=== PATIENT | female | born 1950 | race Caucasian/White ===

== ENCOUNTER → 2017-11-30 12:16 | Outpatient (CLI) | payer MEDICARE, BC, SELFPAY ==
[2017-11-30 12:58] LABS: Appearance Urine UA CLEAR; Bilirubin Urine UA NEGATIVE (NEGATIVE); Color Urine UA YELLOW; Glucose Urine UA NEGATIVE (Normal); Ketones Urine UA NEGATIVE (NEGATIVE); Leukocyte Esterase Urine UA 1+ (NEGATIVE); Nitrite Urine UA Negative (Negative); Occult Blood Urine UA TRACE-LYSED (Negative); Protein Urine UA NEGATIVE (Negative); Specific Gravity Urine UA <=1.005 (1.000-1.035); Urobilinogen Urine UA 0.2 E.U./dL (0.2)
[2017-11-30 13:09] LABS: RBC Urine None Seen (0-5/HPF); Squamous Epithelial Cell Urine 1-5 /HPF; WBC Urine 30-100/HPF (0-5/HPF)
[2017-11-30 13:10] LABS: Bacteria Urine Occasional (0-1); Culture Indicated Urine Specimen Cultured
== END ==
PROVIDERS: PCP Obstetrics & Gynecology; Visit Provider Obstetrics & Gynecology
DX: Z87.440 Personal history of urinary (tract) infections (principal); R39.9 Unspecified symptoms and signs involving the genitourinary system
CPT/HCPCS: 81001; 87077; 87086; 87186

== ENCOUNTER 2018-01-01 08:03 | Day surgery (SDC) | payer MEDICARE, BC, SELFPAY ==
[2017-12-18 08:24] VITALS: BMI 30.2
[2018-01-01] VITALS (13 sets, daily range): BP systolic 121–154; BP diastolic 60–79; PULSE 64–82; RESP 11–18; TEMP 36–36.8; O2SAT 95–100; BMI 29.6
[2018-01-01] MEDS: LACTATED RINGERS 1,000 ML 100 ML IV ×4 (09:59→23:32)
--- NOTE | 2018-01-01 10:02 | PM.PREOP ---
Pre-operative Note Interval Note Pre-op Check: Yes History & Physical Reviewed by Physician Changes: No
[2018-01-01] MEDS: CEFAZOLIN 2 GM/100 ML FROZ.PIGGY IV (10:16)
--- NOTE | 2018-01-01 10:51 | SUR.OPER ---
Lithotomy on padded OR bed, head on pillow, arms secured on padded arm boards at <90 degrees abduction. Legs secured in padded yellow fins stirrups.
[2018-01-01] MEDS: BUPIVACAINE 0.25% W/ EPI VIAL 50 ML INJ (11:03)
[2018-01-01] MEDS: HYDROMORPHONE 2 MG INJ 0.5 MG IV ×2 (12:10→12:22)
--- NOTE | 2018-01-01 12:31 | SUR.PHASEI ---
pt gradually awake, medicated for pain with dilaudid./ report to shey atkinson taken to room 206.
--- NOTE | 2018-01-01 16:44 | PC.NURSE ---
Roseline shift note: Patient awake, and alert. No c/o pain or discomfort. FC draining to gravity secured, with yellow clear urine. IVF infusing. Able to visualize vaginal packing, no active bleeding or abnormal discharge noted. Menstrual pad in place with dried quarter size dark blood noted. Call light within reach.
[2018-01-01] MEDS: DOCUSATE 250 MG CAPSULE PO (20:33)
[2018-01-01] MEDS: OXYCODONE/ACETAMINOPHEN 5/325 TABLET 2 TAB PO (23:33)
[2018-01-02 00:03] VITALS: BP 137/71; PULSE 66; RESP 18; TEMP 37.1; O2SAT 99
--- NOTE | 2018-01-02 00:36 | PC.NURSE ---
shift note met with pt at start of shift. AOx3. 99% on RA. No drainage on pad. Rivera hanging, discussed discontining irvera in am. Pain 07/04, provided PRN percocet. Call light in reach.
[2018-01-02 04:42] VITALS: BP 129/57; PULSE 62; RESP 16; TEMP 36.5; O2SAT 98
[2018-01-02 07:04] LABS: Add Manual Diff / Slide Review NO; Basophils Percent Auto 0.4 % (0-2); Eosinophils Percent Auto 0.4 % (2-4); Hematocrit 34.6 % (36-46); Hemoglobin 11.6 g/dL (12.0-16.0); Lymphocytes Percent Auto 19.6 % (25-40); Mean Corpuscular HGB Conc 33.6 % (30-36); Mean Corpuscular Hemoglobin 31.6 PG (26-34); Mean Corpuscular Volume 94.2 fL (80-100); Monocytes Percent Auto 8.7 % (3-14); Neutrophils Absolute Auto 5500 /uL (3000-5900); Neutrophils Percent Auto 70.9 % (50-75); Platelet Count 227 X10^3/uL (150-400); Red Blood Cell Count 3.67 X10^6/uL (4.0-5.2); Red Cell Distribution Width 13.9 % (11.6-14.8); White Blood Cell Count 7.7 X10^3/uL (4.5-11.0)
[2018-01-02 08:00] VITALS: BP 155/78; PULSE 73; RESP 16; TEMP 36.8; O2SAT 98
[2018-01-02] MEDS: DOCUSATE 250 MG CAPSULE PO (09:41)
--- NOTE | 2018-01-02 10:12 | PC.NURSE ---
A&Ox3. F/C d/c'd ~0600, voided 400cc @ 1000. notified of PVR 33cc. No drainage noted after d/c of vaginal packing this a.m by . Awaiting any new orders.
[2018-01-02 12:00] VITALS: BP 150/78; PULSE 64; RESP 16; TEMP 36.9; O2SAT 100
--- NOTE | 2018-01-02 12:17 | PC.NURSE ---
Discharge teaching completed, all d/c questions answered. Pt aware of scheduled follow up, s/sx of worsening. and d/c restrictions written by . Pt discharged with spouse and with all belongings.
--- NOTE | 2018-02-23 12:01 | PM.GYNOP.1 ---
Operative Date/Time/Diagnoses Date of procedure: 01/01/18 Time of procedure: 10:30 Pre-op diagnosis: Symptomatic cystocele and rectocele Post-op diagnosis: same Procedure: Procedures Operation Date: 01/01/18 09:45 Actual Procedures Side Surgeon p Colporrhaphy Anterior/Posterior Colporrhaphy, perineorraphy Elvia Medeiros MD Indications: Symptomatic cystocele and rectocele Surgeon: Elvia Medeiros Landscape Manager: Louie Alfredo Anesthesia Type: General Operative Notes Findings: Third-degree cystocele Third-degree rectocele Closure Type: primary Specimen(s): none Applied: catheter Estimated blood loss (mL): 100 Blood products transfused: none Procedure in detail: Two Allis clamps were placed at the apex of the cystocele. 6 mL of half percent Marcaine with epinephrine were injected and an incision was made with a #10 blade between the 2 Allis clamps. Wide Allis clamps were placed on the midline of the cystocele approximately 5. The mucosa was undermined using the Metzenbaum scissors and the mucosa incised in the midline moving the wide Allis clamps to the edges of the mucosa. The mucosa was dissected off the underlying fascia using an open moistened Ray-Cindy and a #10 blade. The fascia was reapproximated with 0 Vicryl with a series of horizontal mattress sutures. The excess vaginal mucosa was excised. The mucosa was closed using simple interrupted sutures with 2-0 Vicryl including the underlying fascia to close the space. The weighted speculum was removed from the vagina. Allis clamps were placed at the mucocutaneous junction at the introitus. 6 mL of half percent Marcaine with epinephrine were injected. An incision was made with a #10 blade between the 2 Allis clamps, and a triangular piece of skin and underlying subcutaneous tissue was removed. Allis clamps were placed in the midline of the rectocele. 10 mL of half percent Marcaine with epinephrine were injected submucosally. The mucosa was undermined using the Metzenbaum scissors and the mucosa incised in the midline, moving the wide Allis clamps to the mucosal edges. The underlying fascia was dissected off of th mucosa using an open moistened Ray-Cindy and a #10 blade. The fascia was reapproximated using 0 Vicryl with a series of horizontal mattress sutures. The excess vaginal mucosa was excised. The mucosa was closed using a series of simple interrupted sutures with 2-0 Vicryl including the underlying fascia to close the space. On the perineum 0 Vicryl was used to reapproximate the levator muscle. The subcutaneous layer was closed with 2-0 Vicryl. The skin was closed with 3-0 chromic in a subcuticular fashion. Hemostasis was achieved. A Betadine moistened vaginal pack was placed into the vagina. A rectal exam was done and there were no sutures palpable in the rectum. The urine was clear. Sponge, lap, and instrument counts were correct x-2. The patient tolerated the procedure well, was taken to PACU in stable condition. Complications: none Post-operative Condition: stable Disposition: PACU Plan for aftercare: To acute care after recovery
--- NOTE | 2018-04-06 09:21 | PM.PNPO.1 ---
Subjective Date Patient Seen: 01/02/18 Time Patient Seen: 13:30 Interval history: Patient is a 68-year-old postop day # 1 status post anterior and posterior repair for symptomatic cystocele and rectocele Patient has been able to void without any significant postvoid residuals. She is tolerating a diet. Pain is well controlled. She is ambulating. Exam Vital Signs (past 8 hours): Oxygen Delivery Method Room Air Narrative Exam Narrative: Generally: A well-developed, well-nourished female, no acute distress Lungs: Clear to auscultation bilaterally Cardiovascular: Regular rate and rhythm Abdomen: Soft and flat. Good bowel sounds. Perineum: Clean dry and intact. Vaginal packing removed this morning and was dry. Extremities: Negative Homans Objective Labs Result Diagrams: 01/02/18 06:25 Assessment & Plan Post-op (1) Cystocele with rectocele: Current Visit: Yes Status: Acute Assessment and plan: Assessment: Postop day # 1 status post anterior and posterior repair for symptomatic cystocele and rectocele Patient doing very well Plan: Discharge to home Follow-up 2 weeks Postoperative Procedures Operation Date: 01/01/18 09:45 Actual Procedures Side Surgeon p Colporrhaphy Anterior/Posterior Colporrhaphy, perineorraphy Elvia Medeiros MD Postoperative day: 1 Postoperative status: doing well Postoperative plan: discharge Postoperative plan narrative: Discharge to home Follow-up 2 week Time Spent With Patient less than 15 minutes
--- NOTE | 2018-04-06 09:26 | PM.DS.1 ---
History of Present Illness Date Patient Seen: 01/02/18 Time Patient Seen: 13:30 Chief complaint: 15040 A&P REPAIR Discharge Providers Primary care physician: Chaya Ma PA-C Discharge provider: Elvia Medeiros MD Discharge Date: 01/02/18 Summary Discharge Diagnosis: Symptomatic cystocele and rectocele Hospital Course: Patient underwent an anterior-posterior repair on 01/01/2018. Her postoperative course was unremarkable and she was discharged home on 01/02/2018 voiding without retention, tolerating a diet, ambulating, and pain well controlled. Status at Discharge Functional status at discharge: independent ambulation Overall status at discharge: patient is progressing back to baseline Time Spent with Patient Less than 30 minutes Exam Vital Signs (past 8 hours): Oxygen Delivery Method Room Air Narrative Exam Narrative: Generally: A well-developed, well-nourished female, no acute distress Lungs: Clear to auscultation bilaterally Cardiovascular: Regular rate and rhythm Abdomen: Soft and flat. Good bowel sounds Perineum: Clean dry and intact Extremities: Negative Homans, no edema Objective Labs Result Diagrams: 01/02/18 06:25 Discharge Plan Discharge Plan Patient Disposition: Home Discharge comment: Call with fever,chills or bleeding vaginally more than spotty to light Discharge Med Rec/Prescriptions Prescriptions: No Action hydroxychloroquine [Plaquenil] 200 MG tablet 200 mg PO BIDCC Qty: 0 RF: 0 cyclosporine [Restasis] 1 EACH dropperette 1 drp OPHTH BID Qty: 0 RF: 0 desloratadine 5 MG tablet 5 mg PO QDAY Qty: 0 RF: 0 montelukast [Singulair] 10 MG tablet 10 mg PO QDAY Qty: 0 RF: 0 cholecalciferol (vitamin D3) [Vitamin D3] 2,000 UNIT tablet 1 tab PO QDAY Qty: 0 RF: 0 nitrofurantoin monohyd/m-cryst [Macrobid] 100 mg capsule 100 mg PO BID 7 Days Qty: 14 RF: 0 estradiol [Vagifem] 10 mcg tablet 10 mcg VAG 2XW RF: 0 methotrexate sodium 2.5 mg tablet 2.5 mg PO .COMPLEX RF: 0 Stool Softener capsule 300 mg PO DAILY RF: 0 Follow up/Referrals: Chaya Ma PA-C [Primary Care Provider] - Elvia Medeiros MD [Physician] - 2 Weeks (appointment:01/16 @ 10:45 w/dr medeiros [phone] (please check in 15 min early for your appointment ) Discharge Orders: Discharge (Order); Ordered 01/02/18 Ordered By: Elvia Medeiros Provider Discharge Instructions Diet: Diet as Tolerated Activity: No intercourse, no heavy lifting, no lunging Skin/Wound/Dressing Care Report to your healthcare provider any signs of infection, such as:: chills, fever, increased pain and unusual drainage Visit Report/Discharge Packet Instructions: Cystocele/Rectocele, DI for Cystocele/Rectocele Stand Alone Forms: Surgery Discharge Discharge Data Primary Care Provider: Chaya Ma Attending Provider: Elvia Medeiros Discharges patient from system. Discharge Date/Time: 01/02/18 12:40
--- NOTE | 2018-04-06 09:29 | P.DS_ITS ---
History of Present Illness Date Patient Seen: 01/02/18 Time Patient Seen: 13:30 Chief complaint: [id number] A&P REPAIR Discharge Providers Primary care physician: Chaya Ma PA-C Discharge provider: Elvia Medeiros MD Discharge Date: 01/02/18 Summary Discharge Diagnosis: Symptomatic cystocele and rectocele Hospital Course: Patient underwent an anterior-posterior repair on 01/01/2018. Her postoperative course was unremarkable and she was discharged home on 2017 voiding without retention, tolerating a diet, ambulating, and pain well controlled. Status at Discharge Functional status at discharge: independent ambulation Overall status at discharge: patient is progressing back to baseline Time Spent with Patient Less than 30 minutes Exam Vital Signs (past 8 hours): Oxygen Delivery Method Room Air Narrative Exam Narrative: Generally: A well-developed, well-nourished female, no acute distress Lungs: Clear to auscultation bilaterally Cardiovascular: Regular rate and rhythm Abdomen: Soft and flat. Good bowel sounds Perineum: Clean dry and intact Extremities: Negative Homans, no edema Objective Labs Result Diagrams: 01/02/18 06:25 Discharge Plan Discharge Plan Patient Disposition: Home Discharge comment: Call with fever,chills or bleeding vaginally more than spotty to light Discharge Med Rec/Prescriptions Prescriptions: No Action hydroxychloroquine [Plaquenil] 200 MG tablet 200 mg PO BIDCC Qty: 0 RF: 0 cyclosporine [Restasis] 1 EACH dropperette 1 drp OPHTH BID Qty: 0 RF: 0 desloratadine 5 MG tablet 5 mg PO QDAY Qty: 0 RF: 0 montelukast [Singulair] 10 MG tablet 10 mg PO QDAY Qty: 0 RF: 0 cholecalciferol (vitamin D3) [Vitamin D3] 2,000 UNIT tablet 1 tab PO QDAY Qty: 0 RF: 0 nitrofurantoin monohyd/m-cryst [Macrobid] 100 mg capsule 100 mg PO BID 7 Days Qty: 14 RF: 0 estradiol [Vagifem] 10 mcg tablet 10 mcg VAG 2XW RF: 0 methotrexate sodium 2.5 mg tablet 2.5 mg PO .COMPLEX RF: 0 Stool Softener capsule 300 mg PO DAILY RF: 0 Follow up/Referrals: Chaya Ma PA-C [Primary Care Provider] - Elvia Medeiros MD [Physician] - 2 Weeks (appointment:01/16 @ 10:45 w/dr medeiros [phone] (please check in 15 min early for your appointment ) Discharge Orders: Discharge (Order); Ordered 01/02/18 Ordered By: Elvia Medeiros Provider Discharge Instructions Diet: Diet as Tolerated Activity: No intercourse, no heavy lifting, no lunging Skin/Wound/Dressing Care Report to your healthcare provider any signs of infection, such as:: chills, fever, increased pain and unusual drainage Visit Report/Discharge Packet Instructions: Cystocele/Rectocele, DI for Cystocele/Rectocele Stand Alone Forms: Surgery Discharge Discharge Data Primary Care Provider: Chaya Ma Attending Provider: Elvia Medeiros Discharges patient from system. Discharge Date/Time: 01/02/18 12:40
== END 2018-01-02 12:40 | disposition home or self-care (01) ==
LOC: OR 08:05 → AC 12:46
PROVIDERS: PCP Physician Assistant; Visit Provider Obstetrics & Gynecology
PROC: (CPT 57260; principal; 2018-01-01 09:45)
DX: N81.10 Cystocele, unspecified (principal); N81.6 Rectocele; M06.9 Rheumatoid arthritis, unspecified
CPT/HCPCS: 57260; 36415; 82962; 85025; J0690; J1100; J1170; J1885; J2405; J2704; J3010

== ENCOUNTER → 2018-01-07 13:39 | Outpatient (CLI) | payer MEDICARE, BC, SELFPAY ==
[2018-01-01 13:41] VITALS: BMI 29.6
== END ==
PROVIDERS: PCP Physician Assistant; Visit Provider Physician Assistant
DX: N30.91 Cystitis, unspecified with hematuria (principal)
CPT/HCPCS: 87077; 87086; 87186

== ENCOUNTER → 2018-04-03 13:26 | Outpatient (CLI) | payer MEDICARE, BC, SELFPAY ==
[2018-01-25 12:04] VITALS: BMI 29.6
== END ==
PROVIDERS: PCP Physician Assistant; Visit Provider Physician Assistant
DX: R10.9 Unspecified abdominal pain (principal)
CPT/HCPCS: 87077; 87086; 87186

== ENCOUNTER → 2018-04-18 14:20 | Outpatient (CLI) | payer MEDICARE, BC, SELFPAY ==
[2018-01-25 12:04] VITALS: BMI 29.6
[2018-04-18 14:50] LABS: Add Manual Diff / Slide Review NO; Basophils Absolute Auto 100 /uL (0-100); Eosinophils Absolute Auto 100 /uL (0-450); Eosinophils Percent Auto 1.2 % (2-4); Hematocrit 37.4 % (36-46); Hemoglobin 12.7 g/dL (12.0-16.0); Lymphocytes Absolute Auto 1100 /uL (1100-4500); Lymphocytes Percent Auto 21.1 % (25-40); Mean Corpuscular Hemoglobin 31.9 PG (26-34); Mean Corpuscular Volume 93.9 fL (80-100); Monocytes Absolute Auto 600 /uL (0-900); Monocytes Percent Auto 12.2 % (3-14); Neutrophils Absolute Auto 3400 /uL (1500-7000); Neutrophils Percent Auto 64.5 % (50-75); Platelet Count 250 X10^3/uL (150-400); Red Blood Cell Count 3.99 X10^6/uL (4.0-5.2); Red Cell Distribution Width 14.6 % (11.6-14.8); White Blood Cell Count 5.2 X10^3/uL (4.5-11.0)
[2018-04-18 15:22] LABS: Alanine Aminotransferase 34 IU/L (9-52); Albumin 4.5 g/dL (3.5-5.0); Albumin Globulin Ratio 1.6 (1.0-2.8); Alkaline Phosphatase 60 U/L (38-126); Aspartate Aminotransferase 27 IU/L (14-36); BUN Creatinine Ratio 25.6 (6-22); Bilirubin Total 0.3 mg/dL (0.2-1.3); Blood Urea Nitrogen 23 mg/dL (7-17); Calcium 9.8 mg/dL (8.4-10.2); Carbon Dioxide 25 mmol/L (22-32); Chloride 104 mmol/L (98-107); Estimated Glomerular Filt Rate > 60.0 mL/min (>60); Globulin 2.9 g/dL (1.7-4.1); Glucose 84 mg/dL (80-110); HEMOLYSIS < 15 (0-50); Potassium 4.2 mmol/L (3.4-5.1); Sodium 141 mmol/L (137-145); Total Protein 7.4 g/dL (6.3-8.2)
== END ==
PROVIDERS: PCP Physician Assistant; Visit Provider Physician Assistant
DX: M85.852 Other specified disorders of bone density and structure, left thigh (principal); E78.2 Mixed hyperlipidemia
CPT/HCPCS: 36415; 77080; 80053; 85025

== ENCOUNTER → 2018-06-20 11:52 | Outpatient (CLI) | payer MEDICARE, BC, SELFPAY ==
[2018-01-25 12:04] VITALS: BMI 29.6
[2018-06-20 12:41] LABS: Add Manual Diff / Slide Review NO; Basophils Absolute Auto 100 /uL (0-100); Basophils Percent Auto 1.3 % (0-2); Eosinophils Absolute Auto 100 /uL (0-450); Eosinophils Percent Auto 1.6 % (2-4); Hematocrit 37.2 % (36-46); Hemoglobin 12.7 g/dL (12.0-16.0); Lymphocytes Absolute Auto 900 /uL (1100-4500); Lymphocytes Percent Auto 22.2 % (25-40); Mean Corpuscular HGB Conc 34.2 % (30-36); Mean Corpuscular Hemoglobin 31.9 PG (26-34); Mean Corpuscular Volume 93.4 fL (80-100); Monocytes Absolute Auto 500 /uL (0-900); Monocytes Percent Auto 11.3 % (3-14); Neutrophils Absolute Auto 2600 /uL (1500-7000); Neutrophils Percent Auto 63.6 % (50-75); Platelet Count 251 X10^3/uL (150-400); Red Blood Cell Count 3.98 X10^6/uL (4.0-5.2); Red Cell Distribution Width 14.4 % (11.6-14.8)
[2018-06-20 13:33] LABS: Alanine Aminotransferase 30 IU/L (9-52); Albumin 4.6 g/dL (3.5-5.0); Albumin Globulin Ratio 1.5 (1.0-2.8); Alkaline Phosphatase 56 U/L (38-126); Aspartate Aminotransferase 33 IU/L (14-36); BUN Creatinine Ratio 26.3 (6-22); Bilirubin Total 0.4 mg/dL (0.2-1.3); Blood Urea Nitrogen 21 mg/dL (7-17); Calcium 9.8 mg/dL (8.4-10.2); Carbon Dioxide 26 mmol/L (22-32); Chloride 104 mmol/L (98-107); Estimated Glomerular Filt Rate > 60.0 mL/min (>60); Glucose 98 mg/dL (80-110); HEMOLYSIS 18 (0-50); Potassium 4.1 mmol/L (3.4-5.1); Sodium 141 mmol/L (137-145); Total Protein 7.6 g/dL (6.3-8.2)
== END ==
PROVIDERS: PCP Physician Assistant; Visit Provider Physician Assistant
DX: E78.2 Mixed hyperlipidemia (principal)
CPT/HCPCS: 36415; 80053; 85025

== ENCOUNTER → 2018-06-21 11:04 | Outpatient (CLI) | payer MEDICARE, BC, SELFPAY ==
[2018-01-25 12:04] VITALS: BMI 29.6
--- NOTE | 2018-06-21 11:06 | DI.US.S_ITS ---
PROCEDURE: US PELVIC COMPLETE INDICATIONS: PAIN TECHNIQUE: Real-time scanning was performed of the pelvic organs, with image documentation. Additional endovaginal scanning was necessary due to incomplete visualization of the adnexal and endometrial structures by transabdominal scanning. COMPARISON: None. FINDINGS: Transabdominal scanning: Limited scanning through the kidneys shows no hydronephrosis. No pathologic free abdominal or pelvic fluid. Endovaginal scanning: Uterus: Uterus is normal in size at 6.6 x 2.4 x 3.3 cm. The endometrium measures 1.3 mm in combined thickness. Ovaries: Not visualized. IMPRESSION: 1. No findings to explain pelvic pain. 2. Normal uterus. 3. Nonvisualization of ovaries. Dictated by: Adolfo Quintanilla M.D. on 06/21/2018 at 13:29 Approved by: Adolfo Quintanilla M.D. on 06/21/2018 at 13:31
== END ==
PROVIDERS: PCP Physician Assistant; Visit Provider Obstetrics & Gynecology
DX: R10.2 Pelvic and perineal pain (principal)
CPT/HCPCS: 76830; 76856

== ENCOUNTER → 2018-11-08 14:10 | Outpatient (CLI) | payer MEDICARE, BC, SELFPAY ==
[2018-01-25 12:04] VITALS: BMI 29.6
[2018-11-08 14:41] LABS: Add Manual Diff / Slide Review NO; Basophils Absolute Auto 100 /uL (0-100); Basophils Percent Auto 1.2 % (0-2); Eosinophils Absolute Auto 100 /uL (0-450); Eosinophils Percent Auto 2.4 % (2-4); Hematocrit 35.9 % (36-46); Lymphocytes Absolute Auto 1100 /uL (1100-4500); Lymphocytes Percent Auto 19.6 % (25-40); Mean Corpuscular HGB Conc 33.6 % (30-36); Mean Corpuscular Hemoglobin 31.6 PG (26-34); Mean Corpuscular Volume 94.3 fL (80-100); Monocytes Absolute Auto 600 /uL (0-900); Monocytes Percent Auto 11.2 % (3-14); Neutrophils Absolute Auto 3700 /uL (1500-7000); Neutrophils Percent Auto 65.6 % (50-75); Platelet Count 249 X10^3/uL (150-400); Red Blood Cell Count 3.81 X10^6/uL (4.0-5.2); Red Cell Distribution Width 14.7 % (11.6-14.8); White Blood Cell Count 5.7 X10^3/uL (4.5-11.0)
[2018-11-08 15:02] LABS: Alanine Aminotransferase 28 IU/L (9-52); Albumin 4.5 g/dL (3.5-5.0); Albumin Globulin Ratio 1.5 (1.0-2.8); Alkaline Phosphatase 57 U/L (38-126); Aspartate Aminotransferase 30 IU/L (14-36); BUN Creatinine Ratio 23.8 (6-22); Bilirubin Total 0.4 mg/dL (0.2-1.3); Blood Urea Nitrogen 19 mg/dL (7-17); Calcium 9.6 mg/dL (8.4-10.2); Carbon Dioxide 25 mmol/L (22-32); Chloride 104 mmol/L (98-107); Estimated Glomerular Filt Rate > 60.0 mL/min (>60); Glucose 93 mg/dL (80-110); HEMOLYSIS < 15 (0-50); Potassium 4.3 mmol/L (3.4-5.1); Sodium 139 mmol/L (137-145); Total Protein 7.5 g/dL (6.3-8.2)
== END ==
PROVIDERS: PCP Physician Assistant; Visit Provider Physician Assistant
DX: E78.2 Mixed hyperlipidemia (principal)
CPT/HCPCS: 36415; 80053; 85025

== ENCOUNTER 2018-11-13 13:00 | Outpatient (RCR) | payer MEDICARE, BC, SELFPAY ==
[2018-01-25 12:04] VITALS: BMI 29.6
--- NOTE | 2018-08-20 20:26 | PT.OIE ---
Current Diagnoses Stress incontinence (female) (male) (08/14/18) Past Medical History (Last Updated 12/18/17 @ 08:32 by Zoë Clarke RN) Atrophic vulvovaginitis (Acute) Chronic UTI (Acute) History of sinusitis (Acute) Pelvic relaxation (Acute) Postmenopausal (Acute) Ankylosing spondylitis (Chronic) Rheumatoid arthritis (Chronic) Acute rheumatoid arthritis (Resolved 2005) Past Surgical History (Last Updated 11/06/17 @ 12:35 by Ivette Boogie) History of appendectomy (Resolved 1982) History of cholecystectomy (Resolved 1982) Provider Visit Care Team Role Provider Type Chaya Ma PA-C Primary Care Provider Advanced Informatics Physician Specialty: Internal Medicine Address: [address] [place], [place] [id number] Email: Elvia Medeiros MD Attending Provider Physician Specialty: SAVE ALL OPERATOR Address: [address] [place] [address] Email: [email or web address] Therapy Initial Evaluation PT-OP-A Visit Information Start: 08/14/18 13:03 Freq: Status: Active Protocol: Document 08/14/18 19:40 [facility] (Rec: 08/20/18 19:43 [facility] [email or web address]) Out-Patient Physical Therapy Visit Information Visit Information Visit Type Initial Evaluation Visit Note 68 year old female s/p anterior posterior repair on January 01 2018 with urinary stress incontinence Visit Start Time 13:00 Visit Stop Time 13:45 Total Visit Minutes 45 Visit Number 1 Evaluation Information Evaluation Date 08/14/18 PT-OP-B Current Condition Start: 08/14/18 13:03 Freq: Status: Active Protocol: Document 08/14/18 13:03 [facility] (Rec: 08/14/18 13:24 [facility] [id number]) Current Condition History of Current Condition Onset Date December SURGERY ANTERIOR AND POSTERIOR REPAIR History of Current Condition Trinity reports she had a anterior/posterior repair to fix her pelvic organ prolapse she had been feeling. Since surgery she is not feeling the heaviness but she has experienced progressive leakage since then with activities such as getting in and out of the car, squatting, getting in and out of her bed at night, or getting up out of the sofa. She reports she will soak through a panty liner. She notes she tries to void every couple of hours There are also drips that happen that she is not aware of throughout the day. She also reports c/o pain twinges across her abdomen that began following surgery. She does note that symptoms are getting better from where they were post surgery but this is slow. Treatment Goals Patient/Caregiver Goals Treatment goals include eliminating urinary incontinence and decreasing abdominal discomfort Prior Functional Status Baseline Function- ADL's Independent Baseline Function- Mobility Independent Current Functional Impairments (Reported) Functional Limitations- ADL's leakage occurs with positional changes such as getting off the couch and getting out of bed Functional Limitations- Recreation/ leakage with light activity Hobbies and exercise PT-OP-F Manual Assessment Start: 08/20/18 19:52 Freq: Status: Active Protocol: Document 08/14/18 13:00 [facility] (Rec: 08/20/18 20:22 [facility] [email or web address]) Manual Assessments Soft Tissue Assessment Soft Tissue Mobility Assessment myofascial restrictions across the abdomen with tenderness Right greater than left iliopsoas region Tightness of B iliopsoas myofascial tightness across the bladder and suprapubic fascia PT-OP-I Pelvic Floor Start: 08/20/18 19:52 Freq: Status: Active Protocol: Document 08/14/18 13:00 [facility] (Rec: 08/20/18 20:22 [facility] [email or web address]) Pelvic Floor Assessment Urine Pelvic Floor Surgery Yes Urinary Symptoms Urge Sensation Leakage Size Medium Leakage Cause Cough Exercise Lifting Sneeze Urge Leaks Per Day this varies despite on activity Voiding Frequency voding every hour throughout the day Nocturia 1-2 Urine Pad Type Panty Liner Pelvic Clock Pelvic Clock 12-3 Atrophy Pelvic Clock 3-6 Atrophy Pelvic Clock 6-9 Atrophy Pelvic Clock 9-12 Atrophy Pelvic Clock Other swelling noted in the anterior pelvic floor in the suprapubic region with internal assessment bilateral sides of the urethra Contraction Ability Voluntary Contraction Weak Voluntary Relaxation Weak Manual Muscle Testing Left 3 Manual Muscle Testing Right 3 Manual Muscle Testing Anterior 3 Manual Muscle Testing Posterior 3 PT-OP-J Posture/Palpation/Skin Start: 08/20/18 19:52 Freq: Status: Active Protocol: Document 08/14/18 13:00 [facility] (Rec: 08/20/18 20:22 [facility] [email or web address]) Palpation Assessment Location One Palpation Location anterior abdominal region Palpation Findings Soft Tissue Tightness Muscle Guarding Palpation Details tenderness across the anterior abdominal wall and over the bladder PT-OP-Q Treatments Start: 08/20/18 19:52 Freq: Status: Active Protocol: Document 08/14/18 13:00 [facility] (Rec: 08/20/18 20:22 [facility] [email or web address]) Therapeutic Exercises Supine Exercises 2 Supine Exercise Name pelvic floor contraction long holds Reps/Minutes 5 seconds x 10 reps 1 Supine Exercise Name iliopsoas stretch off the edge of the bed Side bilateral Reps/Minutes 1-2 reps PT-OP-T Assessment and Plan Start: 08/20/18 19:52 Freq: Status: Active Protocol: Document 08/14/18 13:00 [facility] (Rec: 08/20/18 20:22 [facility] [email or web address]) Physical Therapy Assessment Rehab Potential Rehabilitation Potential Excellent Impairments Impairments Pain Soft Tissue Mobility Strength Tone Other Impairments urinary incontinence with exercise and light activity, changing positions, walking to the toilet Goals Three Impairment Urinary incontinence with exercise, light activity, changing positions Short Term Goal (STG) Trinity is educated on pelvic floor engagement prior to positional changes to decrease leakage with change of position STG Duration 3-4 weeks Rigging Engineer Goal (LTG) Trinity is able to eliminate incontinence with her exercise activities LTG Duration 8 weeks Two Impairment Decreased pelvic floor endurance at 4 seconds Short Term Goal (STG) Trinity is able to sustain a pelvic floor contraction for 10 seconds in supine STG Duration 4 weeks Rigging Engineer Goal (LTG) Trinity is able to sustain a pelvic floor contraction for 10 seconds in a standing pelvic floor position LTG Duration 8 weeks One Impairment Pelvic floor weakness 3/5 MMT all parts of the levator ani Rigging Engineer Goal (LTG) Trinity demonstrates improved strength of her pelvic floor to 4/5 or better for improved support of the pelvic organs LTG Duration 8 weeks Assessment Summary Assessment Trinity presents to physical therapy today s/p anterior posterior repair in December 2017. She has complaints of urinary incontinence that have slowly been improving for her since surgery. She seeks guidance for pelvic floor strengthening to prevent leakage with exercise, light activity, changing positions and urges with walking to the toilet. She also c/o twinges of pain across the anterior abdomen and suprapubic region. With examination Trinity is weak in her pelvic floor with MMT of 3 /5 for all parts of her levator ani. There is some inflammation felt in the suprapubic region with internal examination that is most likely residual from surgery and I talked with Trinity today about how exercising the pelvic floor helps to reduce swelling. There is some muscle guarding of the lower abdomen and illiopsoas musculature as well as myofascial tightness across the abdomen. Trinity tolerated todays treatment well of adding in iliopsoas stretching and initiating pelvic floor contractions. Treatment will focus on pelvic floor strengthening, endurance training, bladder retraining, stretches for the pelvis and anterior abdomen, manual treatment and EMG biofeedback for neuromuscular muscular awareness. Physical Therapy Plan Frequency and Duration Frequency of Treatment 1x/Week Duration of Treatment 8 weeks Plan of Care Start Date 08/14/18 Plan of Care End Date 10/09/18 Therapeutic Interventions Therapeutic Interventions Home Exercise Program Neuromuscular Re-education Patient/Caregiver Education Self-Care/Home Management Soft Tissue Mobilization Therapeutic Exercises Modalities Biofeedback Next Visit Focus/Plan Next Note Type Treatment Note Next Visit Plan Begin using EMG biofeedback for assistance with neuromuscular awareness of the pelvic floor and strengthening. Instruct Trinity on the ILU self massage for improved fascial mobility across the abdomen, begin Transverse abdominal facilitation
--- NOTE | 2018-08-20 20:28 | PT.OPPOC ---
Current Diagnoses Stress incontinence (female) (male) (08/14/18) Provider Visit Care Team Role Provider Type Chaya Ma PA-C Primary Care Provider Advanced Change Over Specialty: Internal Medicine Address: [address] [place] [address], [id number] Email: Elvia Medeiros MD Attending Provider Physician Specialty: RELIEF PHARMACIST Address: [address] [place] [address], [id number] Email: [email or web address] Plan Of Care PT-OP-T Assessment and Plan Start: 08/20/18 19:52 Freq: Status: Active Protocol: Document 08/14/18 13:00 [facility] (Rec: 08/20/18 20:22 [facility] [email or web address]) Physical Therapy Assessment Rehab Potential Rehabilitation Potential Excellent Impairments Impairments Pain Soft Tissue Mobility Strength Tone Other Impairments urinary incontinence with exercise and light activity, changing positions, walking to the toilet Goals Three Impairment Urinary incontinence with exercise, light activity, changing positions Short Term Goal (STG) Trinity is educated on pelvic floor engagement prior to positional changes to decrease leakage with change of position STG Duration 3-4 weeks [facility] Goal (LTG) Trinity is able to eliminate incontinence with her exercise activities LTG Duration 8 weeks Two Impairment Decreased pelvic floor endurance at 4 seconds Short Term Goal (STG) Trinity is able to sustain a pelvic floor contraction for 10 seconds in supine STG Duration 4 weeks Grape Grower Goal (LTG) Trinity is able to sustain a pelvic floor contraction for 10 seconds in a standing pelvic floor position LTG Duration 8 weeks One Impairment Pelvic floor weakness 3/5 MMT all parts of the levator ani [facility]ci Goal (LTG) Trintiy demonstrates improved strength of her pelvic floor to 4/5 or better for improved support of the pelvic organs LTG Duration 8 weeks Assessment Summary Assessment Trinity presents to physical therapy today s/p anterior posterior repair in December 2017. She has complaints of urinary incontinence that have slowly been improving for her since surgery. She seeks guidance for pelvic floor strengthening to prevent leakage with exercise, light activity, changing positions, and urges with walking to the toilet. She also c/o twinges of pain across the anterior abdomen and suprapubic region. With examination Trinity is weak in her pelvic floor with MMT of 3 /5 for all parts of her levator ani. There is some inflammation felt in the suprapubic region with internal examination that is most likely residual from surgery and I talked with Trinity today about how exercising the pelvic floor helps to reduce swelling. There is some muscle guarding of the lower abdomen and illiopsoas musculature as well as myofascial tightness across the abdomen. Trinity tolerated todays treatment well of adding in iliopsoas stretching and initiating pelvic floor contractions. Treatment will focus on pelvic floor strengthening, endurance training, bladder retraining, stretches for the pelvis and anterior abdomen, manual treatment and EMG biofeedback for neuromuscular muscular awareness. Physical Therapy Plan Frequency and Duration Frequency of Treatment 1x/Week Duration of Treatment 8 weeks Plan of Care Start Date 08/14/18 Plan of Care End Date 10/09/18 Therapeutic Interventions Therapeutic Interventions Home Exercise Program Neuromuscular Re-education Patient/Caregiver Education Self-Care/Home Management Soft Tissue Mobilization Therapeutic Exercises Modalities Biofeedback Next Visit Focus/Plan Next Note Type Treatment Note Next Visit Plan Begin using EMG biofeedback for assistance with neuromuscular awareness of the pelvic floor and strengthening. Instruct Trinity on the ILU self massage for improved fascial mobility across the abdomen, begin Transverse abdominal facilitation Plan of Care Dates Plan of Care Start Date 08/14/18 Plan of Care End Date 10/09/18 Please Sign and Return: I have reviewed this Plan of Care and certify that the skilled therapy services above are required to meet the patient?s needs. Physician Signature Date Printed Name and Credentials Clinical Instructor Signature Printed Name and Credentials
--- NOTE | 2018-08-22 09:57 | PT.OTN ---
Current Diagnoses Stress incontinence (female) (male) (08/21/18) Physical Therapy Treatment Note PT-OP-A Visit Information Start: 08/14/18 13:03 Freq: Status: Active Protocol: Document 08/21/18 13:33 [facility] (Rec: 08/21/18 13:34 [facility] [email or web address]) Out-Patient Physical Therapy Visit Information Visit Information Visit Type Treatment Note Visit Start Time 13:00 Visit Stop Time 13:45 Total Visit Minutes 45 Visit Number 2 PT-OP-B Current Condition Start: 08/14/18 13:03 Freq: Status: Active Protocol: Document 08/14/18 13:03 [facility] (Rec: 08/14/18 13:24 [facility] [id number]) Current Condition History of Current Condition Onset Date December SURGERY ANTERIOR AND POSTERIOR REPAIR History of Current Condition Trinity reports she had a anterior/posterior repair to fix her pelvic organ prolapse she had been feeling. Since surgery she is not feeling the heaviness but she has experienced progressive leakage since then with activities such as getting in and out of the car, squatting, getting in and out of her bed at night, or getting up out of the sofa. She reports she will soak through a panty liner. She notes she tries to void every couple of hours There are also drips that happen that she is not aware of throughout the day. She also reports c/o pain twinges across her abdomen that began following surgery. She does note that symptoms are getting better from where they were post surgery but this is slow. Treatment Goals Patient/Caregiver Goals Treatment goals include eliminating urinary incontinence and decreasing abdominal discomfort Prior Functional Status Baseline Function- ADL's Independent Baseline Function- Mobility Independent Current Functional Impairments (Reported) Functional Limitations- ADL's leakage occurs with positional changes such as getting off the couch and getting out of bed Functional Limitations- Recreation/ leakage with light activity Hobbies and exercise PT-OP-C Subjective Start: 08/14/18 13:03 Freq: Status: Active Protocol: Document 08/21/18 13:33 [facility] (Rec: 08/21/18 13:34 [facility] [email or web address]) OP-PT Subjective Patient Comments Patient Comments pt reports she was sore with the hip flexor stretches and felt low back pain following. She has been trying to work on abdominal massage but has felt flared up in the abdominal wall as well PT-OP-F Manual Assessment Start: 08/20/18 19:52 Freq: Status: Active Protocol: Document 08/14/18 13:00 [facility] (Rec: 08/20/18 20:22 [facility] [email or web address]) Manual Assessments Soft Tissue Assessment Soft Tissue Mobility Assessment myofascial restrictions across the abdomen with tenderness Right greater than left iliopsoas region Tightness of B iliopsoas myofascial tightness across the bladder and suprapubic fascia PT-OP-I Pelvic Floor Start: 08/20/18 19:52 Freq: Status: Active Protocol: Document 08/14/18 13:00 [facility] (Rec: 08/20/18 20:22 [facility] [email or web address]) Pelvic Floor Assessment Urine Pelvic Floor Surgery Yes Urinary Symptoms Urge Sensation Leakage Size Medium Leakage Cause Cough Exercise Lifting Sneeze Urge Leaks Per Day this varies despite on activity Voiding Frequency voding every hour throughout the day Nocturia 1-2 Urine Pad Type Panty Liner Pelvic Clock Pelvic Clock 12-3 Atrophy Pelvic Clock 3-6 Atrophy Pelvic Clock 6-9 Atrophy Pelvic Clock 9-12 Atrophy Pelvic Clock Other sweling noted in the anterior pelvic floor in the suprapubic region with internal assessment bilateral sides of the urethra Contraction Ability Voluntary Contraction Weak Voluntary Relaxation Weak Manual Muscle Testing Left 3 Manual Muscle Testing Right 3 Manual Muscle Testing Anterior 3 Manual Muscle Testing Posterior 3 PT-OP-J Posture/Palpation/Skin Start: 08/20/18 19:52 Freq: Status: Active Protocol: Document 08/14/18 13:00 [facility] (Rec: 08/20/18 20:22 [facility] [email or web address]) Palpation Assessment Location One Palpation Location anterior abdominal region Palpation Findings Soft Tissue Tightness Muscle Guarding Palpation Details tenderness across the anterior abdominal wall and over the bladder PT-OP-Q Treatments Start: 08/20/18 19:52 Freq: Status: Active Protocol: Document 08/21/18 13:00 [facility] (Rec: 08/22/18 09:56 [facility] [email or web address]) Therapeutic Exercises Supine Exercises 3 Supine Exercise Name TA faciliation Comments added in marches and SLR with TA facilitation 2 Supine Exercise Name pelvic floor contraction long holds Reps/Minutes 10 seconds x 10 reps 1 Supine Exercise Name iliopsoas stretch off the edge of the bed Side bilateral Reps/Minutes 1-2 reps Sidelying Exercises 2 Sidelying Exercise Name sidelying hip abduction Reps/Minutes 3x10 reps 1 Sidelying Exercise Name carie schaeffer Reps/Minutes 3 x 10 Manual Therapy Treatment Soft Tissue Mobilization 1 Body Location ILU massage over the colon and visceral release over the bladder PT-OP-T Assessment and Plan Start: 08/20/18 19:52 Freq: Status: Active Protocol: Document 08/21/18 13:00 [facility] (Rec: 08/22/18 09:56 [facility] [email or web address]) Physical Therapy Assessment Assessment Summary Assessment Nakia has been working on the self massage and her tissue felt better today in the abdomen with decreased restrictions. She needs verbal cuing for TA and pelvic floor facilitation and tends to arch her back with contractions causing her discomfort Physical Therapy Plan Frequency and Duration Frequency of Treatment 1x/Week Duration of Treatment 8 weeks Plan of Care Start Date 08/14/18 Plan of Care End Date 10/09/18 Next Visit Focus/Plan Next Note Type Treatment Note Next Visit Plan continue progressing TA facilitation and pelvic floor strength
--- NOTE | 2018-08-29 15:00 | PT.OTN ---
Current Diagnoses Stress incontinence (female) (male) (08/27/18) Physical Therapy Treatment Note PT-OP-A Visit Information Start: 08/14/18 13:03 Freq: Status: Active Protocol: Document 08/27/18 11:15 [facility] (Rec: 08/29/18 15:00 [facility] [email or web address]) Out-Patient Physical Therapy Visit Information Visit Information Visit Type Treatment Note Visit Start Time 01:15 Visit Stop Time 12:00 Total Visit Minutes 45 Visit Number 3 Evaluation Information Evaluation Date 08/14/18 PT-OP-B Current Condition Start: 08/14/18 13:03 Freq: Status: Active Protocol: Document 08/14/18 13:03 [facility] (Rec: 08/14/18 13:24 [facility] [id number]) Current Condition History of Current Condition Onset Date December SURGERY ANTERIOR AND POSTERIOR REPAIR History of Current Condition Trinity reports she had a anterior/posterior repair to fix her pelvic organ prolapse she had been feeling. Since surgery she is not feeling the heaviness but she has experienced progressive leakage since then with activities such as getting in and out of the car, squatting, getting in and out of her bed at night, or getting up out of the sofa. She reports she will soak through a panty liner. She notes she tries to void every couple of hours There are also drips that happen that she is not aware of throughout the day. She also reports c/o pain twinges across her abdomen that began following surgery. She does note that symptoms are getting better from where they were post surgery but this is slow. Treatment Goals Patient/Caregiver Goals Treatment goals include eliminating urinary incontinence and decreasing abdominal discomfort Prior Functional Status Baseline Function- ADL's Independent Baseline Function- Mobility Independent Current Functional Impairments (Reported) Functional Limitations- ADL's leakage occurs with positional changes such as getting off the couch and getting out of bed Functional Limitations- Recreation/ leakage with light activity Hobbies and exercise PT-OP-C Subjective Start: 08/14/18 13:03 Freq: Status: Active Protocol: Document 08/27/18 11:15 [facility] (Rec: 08/29/18 15:00 [facility] [email or web address]) OP-PT Subjective Patient Comments Patient Comments Trinity reports that she has had decreased leakage overall and her bowl movements have also been better PT-OP-F Manual Assessment Start: 08/20/18 19:52 Freq: Status: Active Protocol: Document 08/14/18 13:00 [facility] (Rec: 08/20/18 20:22 [facility] [email or web address]) Manual Assessments Soft Tissue Assessment Soft Tissue Mobility Assessment myofascial restrictions across the abdomen with tenderness Right greater than left iliopsoas region Tightness of B iliopsoas myofascial tightness across the bladder and suprapubic fascia PT-OP-I Pelvic Floor Start: 08/20/18 19:52 Freq: Status: Active Protocol: Document 08/14/18 13:00 [facility] (Rec: 08/20/18 20:22 [facility] [email or web address]) Pelvic Floor Assessment Urine Pelvic Floor Surgery Yes Urinary Symptoms Urge Sensation Leakage Size Medium Leakage Cause Cough Exercise Lifting Sneeze Urge Leaks Per Day this varies despite on activity Voiding Frequency voding every hour throughout the day Nocturia 1-2 Urine Pad Type Panty Liner Pelvic Clock Pelvic Clock 12-3 Atrophy Pelvic Clock 3-6 Atrophy Pelvic Clock 6-9 Atrophy Pelvic Clock 9-12 Atrophy Pelvic Clock Other sweling noted in the anterior pelvic floor in the suprapubic region with internal assessment bilateral sides of the urethra Contraction Ability Voluntary Contraction Weak Voluntary Relaxation Weak Manual Muscle Testing Left 3 Manual Muscle Testing Right 3 Manual Muscle Testing Anterior 3 Manual Muscle Testing Posterior 3 PT-OP-J Posture/Palpation/Skin Start: 08/20/18 19:52 Freq: Status: Active Protocol: Document 08/14/18 13:00 [facility] (Rec: 08/20/18 20:22 [facility] [email or web address]) Palpation Assessment Location One Palpation Location anterior abdominal region Palpation Findings Soft Tissue Tightness Muscle Guarding Palpation Details tenderness across the anterior abdominal wall and over the bladder PT-OP-Q Treatments Start: 08/20/18 19:52 Freq: Status: Active Protocol: Document 08/27/18 11:15 [facility] (Rec: 08/29/18 15:00 [facility] [email or web address]) Therapeutic Exercises Supine Exercises 5 Supine Exercise Name templates for coordination and eccentric control 4 Supine Exercise Name pelvic floor quick flicks Reps/Minutes x 10 3 Supine Exercise Name TA faciliation Comments added in marches and SLR with TA facilitation 2 Supine Exercise Name pelvic floor contraction long holds Reps/Minutes 10 seconds x 10 reps Sidelying Exercises 2 Sidelying Exercise Name sidelying hip abduction Reps/Minutes 3x10 reps 1 Sidelying Exercise Name clam shells Reps/Minutes 3 x 10 Manual Therapy Treatment Soft Tissue Mobilization 2 Body Location visceral massage over the bladder 1 Body Location ILU massage over the colon and visceral release over the bladder PT-OP-T Assessment and Plan Start: 08/20/18 19:52 Freq: Status: Active Protocol: Document 08/27/18 11:15 [facility] (Rec: 08/29/18 15:00 [facility] [email or web address]) Physical Therapy Assessment Assessment Summary Assessment Decreased resting tone today at 0.0 uv and average of 14.3 uv max of 42.7 uv. Good improvements Physical Therapy Plan Frequency and Duration Frequency of Treatment 1x/Week Duration of Treatment 8 weeks Plan of Care Start Date 08/14/18 Plan of Care End Date 10/09/18 Next Visit Focus/Plan Next Note Type Treatment Note Next Visit Plan continue progressing TA facilitation and pelvic floor strength
--- NOTE | 2018-09-17 07:47 | PT.OTN ---
Current Diagnoses Stress incontinence (female) (male) (09/13/18) Physical Therapy Treatment Note PT-OP-A Visit Information Start: 08/14/18 13:03 Freq: Status: Active Protocol: Document 09/13/18 08:59 [facility] (Rec: 09/13/18 09:07 [facility] [id number]) Out-Patient Physical Therapy Visit Information Visit Information Visit Type Treatment Note Visit Start Time 09:45 Visit Stop Time 10:30 Total Visit Minutes 45 Visit Number 4 PT-OP-B Current Condition Start: 08/14/18 13:03 Freq: Status: Active Protocol: Document 08/14/18 13:03 [facility] (Rec: 08/14/18 13:24 [facility] [id number]) Current Condition History of Current Condition Onset Date December SURGERY ANTERIOR AND POSTERIOR REPAIR History of Current Condition Trinity reports she had a anterior/posterior repair to fix her pelvic organ prolapse she had been feeling. Since surgery she is not feeling the heaviness but she has experienced progressive leakage since then with activities such as getting in and out of the car, squatting, getting in and out of her bed at night, or getting up out of the sofa. She reports she will soak through a panty liner. She notes she tries to void every couple of hours There are also drips that happen that she is not aware of throughout the day. She also reports c/o pain twinges across her abdomen that began following surgery. She does note that symptoms are getting better from where they were post surgery but this is slow. Treatment Goals Patient/Caregiver Goals Treatment goals include eliminating urinary incontinence and decreasing abdominal discomfort Prior Functional Status Baseline Function- ADL's Independent Baseline Function- Mobility Independent Current Functional Impairments (Reported) Functional Limitations- ADL's leakage occurs with positional changes such as getting off the couch and getting out of bed Functional Limitations- Recreation/ leakage with light activity Hobbies and exercise PT-OP-C Subjective Start: 08/14/18 13:03 Freq: Status: Active Protocol: Document 09/13/18 08:59 [facility] (Rec: 09/13/18 09:07 [facility] [id number]) OP-PT Subjective Patient Comments Patient Comments had to ravel to [place] and symptoms worsened. Riding in the car she notices leaking this week. She drove 3 days ther and three days back. Working in the yard and bending she notes decreased abdominal pain. Patient Reported Progress Same PT-OP-F Manual Assessment Start: 08/20/18 19:52 Freq: Status: Active Protocol: Document 08/14/18 13:00 [facility] (Rec: 08/20/18 20:22 [facility] [email or web address]) Manual Assessments Soft Tissue Assessment Soft Tissue Mobility Assessment myofascial restrictions across the abdomen with tenderness Right greater than left iliopsoas region Tightness of B iliopsoas myofascial tightness across the bladder and suprapubic fascia PT-OP-I Pelvic Floor Start: 08/20/18 19:52 Freq: Status: Active Protocol: Document 08/14/18 13:00 [facility] (Rec: 08/20/18 20:22 [facility] [email or web address]) Pelvic Floor Assessment Urine Pelvic Floor Surgery Yes Urinary Symptoms Urge Sensation Leakage Size Medium Leakage Cause Cough Exercise Lifting Sneeze Urge Leaks Per Day this varies despite on activity Voiding Frequency voding every hour throughout the day Nocturia 1-2 Urine Pad Type Panty Liner Pelvic Clock Pelvic Clock 12-3 Atrophy Pelvic Clock 3-6 Atrophy Pelvic Clock 6-9 Atrophy Pelvic Clock 9-12 Atrophy Pelvic Clock Other sweling noted in the anterior pelvic floor in the suprapubic region with internal assessment bilateral sides of the urethra Contraction Ability Voluntary Contraction Weak Voluntary Relaxation Weak Manual Muscle Testing Left 3 Manual Muscle Testing Right 3 Manual Muscle Testing Anterior 3 Manual Muscle Testing Posterior 3 PT-OP-J Posture/Palpation/Skin Start: 08/20/18 19:52 Freq: Status: Active Protocol: Document 08/14/18 13:00 [facility] (Rec: 08/20/18 20:22 [facility] [email or web address]) Palpation Assessment Location One Palpation Location anterior abdominal region Palpation Findings Soft Tissue Tightness Muscle Guarding Palpation Details tenderness across the anterior abdominal wall and over the bladder PT-OP-Q Treatments Start: 08/20/18 19:52 Freq: Status: Active Protocol: Document 09/13/18 09:00 [facility] (Rec: 09/17/18 07:46 [facility] [email or web address]) Therapeutic Exercises Supine Exercises 5 Supine Exercise Name templates for coordination and eccentric control 4 Supine Exercise Name pelvic floor quick flicks Reps/Minutes x 10 3 Supine Exercise Name TA faciliation Comments added in marches and SLR with TA facilitation 2 Supine Exercise Name pelvic floor contraction long holds Reps/Minutes 10 seconds x 10 reps 1 Supine Exercise Name iliopsoas stretch off the edge of the bed Side bilateral Reps/Minutes 1-2 reps Sidelying Exercises 2 Sidelying Exercise Name sidelying hip abduction Reps/Minutes 3x10 reps 1 Sidelying Exercise Name clam shells Reps/Minutes 3 x 10 PT-OP-T Assessment and Plan Start: 08/20/18 19:52 Freq: Status: Active Protocol: Document 09/13/18 09:00 [facility] (Rec: 09/17/18 07:46 [facility] [email or web address]) Physical Therapy Assessment Assessment Summary Assessment Average on EMG biofeedback today was 17.3 with max of 35 uv. Good improvements with average pelvic floor contraction improving. Also decreasing c.o abdominal pain Physical Therapy Plan Frequency and Duration Frequency of Treatment 1x/Week Duration of Treatment 8 weeks Plan of Care Start Date 08/14/18 Plan of Care End Date 10/09/18 Therapeutic Interventions Therapeutic Interventions Home Exercise Program Neuromuscular Re-education Patient/Caregiver Education Self-Care/Home Management Soft Tissue Mobilization Therapeutic Exercises Modalities Biofeedback Next Visit Focus/Plan Next Note Type Treatment Note Next Visit Plan continue progressing TA facilitation and pelvic floor strength
--- NOTE | 2018-10-23 11:14 | PT.OPPOC ---
Current Diagnoses Stress incontinence (female) (male) (10/17/18) Provider Visit Care Team Role Provider Type Chaya Ma PA-C Primary Care Provider Advanced Heel Top Lift Splitter Specialty: Internal Medicine Address: [address] [place] [address], [phone] Email: Elvia Medeiros MD Attending Provider Physician Specialty: MANAGER OF MAINTENANCE Address: [address] [place] [address], [address] Email: [email or web address] Plan Of Care PT-OP-T Assessment and Plan Start: 08/20/18 19:52 Freq: Status: Active Protocol: Document 10/17/18 13:00 [facility] (Rec: 10/23/18 11:12 [facility] [email or web address]) Physical Therapy Assessment Assessment Summary Assessment Trinity has been seen for 5 visits in PT. She returned after being sick for over three weeks with a bad cough. She notes the cough really caused her leakage. Before this strong cough she was doing better and seeing improvements. She is stronger on her EMG biofeedback readings and there is no longer swelling felt with internal assessment. I have educated Trinity about trying to brace with her pelvic floor prior to coughing or sneezing. She is working on her Home program. She has three additional visits scheduled and will then be transitioned to a home program Physical Therapy Plan Frequency and Duration Frequency of Treatment 1x/Week Duration of Treatment 8 weeks Plan of Care Start Date 10/17/18 Plan of Care End Date 12/13/18 Therapeutic Interventions Therapeutic Interventions Home Exercise Program Neuromuscular Re-education Patient/Caregiver Education Self-Care/Home Management Soft Tissue Mobilization Therapeutic Exercises Modalities Biofeedback Next Visit Focus/Plan Next Note Type Treatment Note Next Visit Plan continue progressing TA facilitation and pelvic floor strength, move into functional positions with Trinity for strengthening Plan of Care Dates Plan of Care Start Date 10/17/18 Plan of Care End Date 12/13/18 Please Sign and Return: I have reviewed this Plan of Care and certify that the skilled therapy services above are required to meet the patient?s needs. Physician Signature Date Printed Name and Credentials Clinical Instructor Signature Printed Name and Credentials
--- NOTE | 2018-10-23 11:14 | PT.OTN ---
Current Diagnoses Stress incontinence (female) (male) (10/17/18) Physical Therapy Treatment Note PT-OP-A Visit Information Start: 08/14/18 13:03 Freq: Status: Active Protocol: Document 10/17/18 13:04 [facility] (Rec: 10/17/18 13:09 [facility] [id number]) Out-Patient Physical Therapy Visit Information Visit Information Visit Type Treatment Note Visit Start Time 13:00 Visit Stop Time 13:45 Total Visit Minutes 45 Visit Number 5 PT-OP-B Current Condition Start: 08/14/18 13:03 Freq: Status: Active Protocol: Document 08/14/18 13:03 [facility] (Rec: 08/14/18 13:24 [facility] [id number]) Current Condition History of Current Condition Onset Date December SURGERY ANTERIOR AND POSTERIOR REPAIR History of Current Condition Trinity reports she had a anterior/posterior repair to fix her pelvic organ prolapse she had been feeling. Since surgery she is not feeling the heaviness but she has experienced progressive leakage since then with activities such as getting in and out of the car, squatting, getting in and out of her bed at night, or getting up out of the sofa. She reports she will soak through a panty liner. She notes she tries to void every couple of hours There are also drips that happen that she is not aware of throughout the day. She also reports c/o pain twinges across her abdomen that began following surgery. She does note that symptoms are getting better from where they were post surgery but this is slow. Treatment Goals Patient/Caregiver Goals Treatment goals include eliminating urinary incontinence and decreasing abdominal discomfort Prior Functional Status Baseline Function- ADL's Independent Baseline Function- Mobility Independent Current Functional Impairments (Reported) Functional Limitations- ADL's leakage occurs with positional changes such as getting off the couch and getting out of bed Functional Limitations- Recreation/ leakage with light activity Hobbies and exercise PT-OP-C Subjective Start: 08/14/18 13:03 Freq: Status: Active Protocol: Document 10/17/18 13:04 [facility] (Rec: 10/17/18 13:09 [facility] [id number]) OP-PT Subjective Patient Comments Patient Comments Nakia reports she has had 3.5 weeks of a cold with a lot of coughing so it has been hard on her bladder. She does report overall improvements but with a set back in the past 3.5 weeks Patient Reported Progress Improving PT-OP-F Manual Assessment Start: 08/20/18 19:52 Freq: Status: Active Protocol: Document 08/14/18 13:00 [facility] (Rec: 08/20/18 20:22 [facility] [email or web address]) Manual Assessments Soft Tissue Assessment Soft Tissue Mobility Assessment myofascial restrictions across the abdomen with tenderness Right greater than left iliopsoas region Tightness of B iliopsoas myofascial tightness across the bladder and suprapubic fascia PT-OP-I Pelvic Floor Start: 08/20/18 19:52 Freq: Status: Active Protocol: Document 10/17/18 13:00 [facility] (Rec: 10/23/18 11:12 [facility] [email or web address]) Pelvic Floor Assessment Pelvic Clock Pelvic Clock 12-3 Atrophy Pelvic Clock 3-6 Atrophy Pelvic Clock Other no longer note the swelling SEMG (uV) Baseline 0 10 Second Contraction 14.3 Recruitment Pattern Good Relaxation Good Holding Good Stability of Hold Good SEMG Stability of Rest Good Contraction Ability Voluntary Contraction Moderate Voluntary Relaxation Moderate Manual Muscle Testing Left 3 Manual Muscle Testing Right 3 Manual Muscle Testing Anterior 3 Manual Muscle Testing Posterior 3 Muscle Endurance (Seconds) 10 PT-OP-J Posture/Palpation/Skin Start: 08/20/18 19:52 Freq: Status: Active Protocol: Document 08/14/18 13:00 [facility] (Rec: 08/20/18 20:22 [facility] [email or web address]) Palpation Assessment Location One Palpation Location anterior abdominal region Palpation Findings Soft Tissue Tightness Muscle Guarding Palpation Details tenderness across the anterior abdominal wall and over the bladder PT-OP-Q Treatments Start: 08/20/18 19:52 Freq: Status: Active Protocol: Document 10/17/18 13:00 [facility] (Rec: 10/23/18 11:12 [facility] [email or web address]) Therapeutic Exercises Supine Exercises 5 Supine Exercise Name templates for coordination and eccentric control 4 Supine Exercise Name pelvic floor quick flicks Reps/Minutes x 10 3 Supine Exercise Name TA faciliation Comments added in marches and SLR with TA facilitation 2 Supine Exercise Name pelvic floor contraction long holds Reps/Minutes 10 seconds x 10 reps 1 Supine Exercise Name iliopsoas stretch off the edge of the bed Side bilateral Reps/Minutes 1-2 reps Sidelying Exercises 2 Sidelying Exercise Name sidelying hip abduction Reps/Minutes 3x10 reps 1 Sidelying Exercise Name clam shells Reps/Minutes 3 x 10 Manual Therapy Treatment Manual Techniques 1 Type manual assessment of pelvic floor strength, endurance, swelling Body Location pelvic floor Body Position Hooklying PT-OP-T Assessment and Plan Start: 08/20/18 19:52 Freq: Status: Active Protocol: Document 10/17/18 13:00 [facility] (Rec: 10/23/18 11:12 [facility] [email or web address]) Physical Therapy Assessment Assessment Summary Assessment Trinity has been seen for 5 visits in PT. She returned after being sick for over three weeks with a bad cough. She notes the cough really caused her leakage. Before this strong cough she was doing better and seeing improvements. She is stronger on her EMG biofeedback readings and there is no longer swelling felt with internal assessment. I have educated Trinity about trying to brace with her pelvic floor prior to coughing or sneezing. She is working on her Home program. She has three additional visits scheduled and will then be transitioned to a home program Physical Therapy Plan Frequency and Duration Frequency of Treatment 1x/Week Duration of Treatment 8 weeks Plan of Care Start Date 10/17/18 Plan of Care End Date 12/13/18 Therapeutic Interventions Therapeutic Interventions Home Exercise Program Neuromuscular Re-education Patient/Caregiver Education Self-Care/Home Management Soft Tissue Mobilization Therapeutic Exercises Modalities Biofeedback Next Visit Focus/Plan Next Note Type Treatment Note Next Visit Plan continue progressing TA facilitation and pelvic floor strength, move into functional positions with Trinity for strengthening
--- NOTE | 2018-10-24 12:59 | PT.OPPOC ---
Current Diagnoses Stress incontinence (female) (male) (10/24/18) Provider Visit Care Team Role Provider Type Chaya Ma PA-C Primary Care Provider Advanced Supply Chain Business Analyst Specialty: Internal Medicine Address: [address] [place] [address], [id number] Email: Elvia Medeiros MD Attending Provider Physician Specialty: [employer] Address: [address] [place] [address], [id number] Email: [email or web address] Plan Of Care PT-OP-T Assessment and Plan Start: 08/20/18 19:52 Freq: Status: Active Protocol: Document 10/17/18 13:00 [facility] (Rec: 10/23/18 11:12 [facility] [email or web address]) Physical Therapy Assessment Assessment Summary Assessment Trinity has been seen for 5 visits in PT. She returned after being sick for over three weeks with a bad cough. She notes the cough really caused her leakage. Before this strong cough she was doing better and seeing improvements. She is stronger on her EMG biofeedback readings and there is no longer swelling felt with internal assessment. I have educated Trinity about trying to brace with her pelvic floor prior to coughing or sneezing. She is working on her Home program. She has three additional visits scheduled and will then be transitioned to a home program Physical Therapy Plan Frequency and Duration Frequency of Treatment 1x/Week Duration of Treatment 8 weeks Plan of Care Start Date 10/17/18 Plan of Care End Date 12/13/18 Therapeutic Interventions Therapeutic Interventions Home Exercise Program Neuromuscular Re-education Patient/Caregiver Education Self-Care/Home Management Soft Tissue Mobilization Therapeutic Exercises Modalities Biofeedback Next Visit Focus/Plan Next Note Type Treatment Note Next Visit Plan continue progressing TA facilitation and pelvic floor strength, move into functional positions with Trinity for strengthening Plan of Care Dates Plan of Care Start Date 10/17/18 Plan of Care End Date 12/13/18 Please Sign and Return: I have reviewed this Plan of Care and certify that the skilled therapy services above are required to meet the patient?s needs. Physician Signature Date Printed Name and Credentials Clinical Instructor Signature Printed Name and Credentials
--- NOTE | 2018-10-24 14:39 | PT.OTN ---
Current Diagnoses Stress incontinence (female) (male) (10/24/18) Physical Therapy Treatment Note PT-OP-A Visit Information Start: 08/14/18 13:03 Freq: Status: Active Protocol: Document 10/24/18 14:30 [facility] (Rec: 10/24/18 14:38 [facility] [email or web address]) Out-Patient Physical Therapy Visit Information Visit Information Visit Type Treatment Note Visit Start Time 13:00 Visit Stop Time 13:45 Total Visit Minutes 45 Visit Number 6 PT-OP-B Current Condition Start: 08/14/18 13:03 Freq: Status: Active Protocol: Document 08/14/18 13:03 [facility] (Rec: 08/14/18 13:24 [facility] [id number]) Current Condition History of Current Condition Onset Date December SURGERY ANTERIOR AND POSTERIOR REPAIR History of Current Condition Trinity reports she had a anterior/posterior repair to fix her pelvic organ prolapse she had been feeling. Since surgery she is not feeling the heaviness but she has experienced progressive leakage since then with activities such as getting in and out of the car, squatting, getting in and out of her bed at night, or getting up out of the sofa. She reports she will soak through a panty liner. She notes she tries to void every couple of hours There are also drips that happen that she is not aware of throughout the day. She also reports c/o pain twinges across her abdomen that began following surgery. She does note that symptoms are getting better from where they were post surgery but this is slow. Treatment Goals Patient/Caregiver Goals Treatment goals include eliminating urinary incontinence and decreasing abdominal discomfort Prior Functional Status Baseline Function- ADL's Independent Baseline Function- Mobility Independent Current Functional Impairments (Reported) Functional Limitations- ADL's leakage occurs with positional changes such as getting off the couch and getting out of bed Functional Limitations- Recreation/ leakage with light activity Hobbies and exercise PT-OP-C Subjective Start: 08/14/18 13:03 Freq: Status: Active Protocol: Document 10/24/18 14:30 [facility] (Rec: 10/24/18 14:38 [facility] [email or web address]) OP-PT Subjective Patient Comments Patient Comments Pt reports her cough is getting better. She has been dry the last three mornings. Patient Reported Progress Improving PT-OP-F Manual Assessment Start: 08/20/18 19:52 Freq: Status: Active Protocol: Document 08/14/18 13:00 [facility] (Rec: 08/20/18 20:22 [facility] [email or web address]) Manual Assessments Soft Tissue Assessment Soft Tissue Mobility Assessment myofascial restrictions across the abdomen with tenderness Right greater than left iliopsoas region Tightness of B iliopsoas myofascial tightness across the bladder and suprapubic fascia PT-OP-I Pelvic Floor Start: 08/20/18 19:52 Freq: Status: Active Protocol: Document 10/17/18 13:00 [facility] (Rec: 10/23/18 11:12 [facility] [email or web address]) Pelvic Floor Assessment Pelvic Clock Pelvic Clock 12-3 Atrophy Pelvic Clock 3-6 Atrophy Pelvic Clock Other no longer note the swelling SEMG (uV) Baseline 0 10 Second Contraction 14.3 Recruitment Pattern Good Relaxation Good Holding Good Stability of Hold Good SEMG Stability of Rest Good Contraction Ability Voluntary Contraction Moderate Voluntary Relaxation Moderate Manual Muscle Testing Left 3 Manual Muscle Testing Right 3 Manual Muscle Testing Anterior 3 Manual Muscle Testing Posterior 3 Muscle Endurance (Seconds) 10 PT-OP-J Posture/Palpation/Skin Start: 08/20/18 19:52 Freq: Status: Active Protocol: Document 08/14/18 13:00 [facility] (Rec: 08/20/18 20:22 [facility] [email or web address]) Palpation Assessment Location One Palpation Location anterior abdominal region Palpation Findings Soft Tissue Tightness Muscle Guarding Palpation Details tenderness across the anterior abdominal wall and over the bladder PT-OP-Q Treatments Start: 08/20/18 19:52 Freq: Status: Active Protocol: Document 10/24/18 14:30 [facility] (Rec: 10/24/18 14:38 [facility] [email or web address]) Therapeutic Exercises Supine Exercises 6 Supine Exercise Name TA with SLR Reps/Minutes 2 x 10 reps 3 Supine Exercise Name TA faciliation Comments added in marches and SLR with TA facilitation 2 Supine Exercise Name pelvic floor contraction long holds Reps/Minutes 10 seconds x 10 reps 1 Supine Exercise Name iliopsoas stretch off the edge of the bed Comments much imrpoved iliopsoas length Sidelying Exercises 2 Sidelying Exercise Name sidelying hip abduction Reps/Minutes 3x10 reps 1 Sidelying Exercise Name clam shells Reps/Minutes 3 x 10 Other Exercises 1 Other Exercise Name quadraped TA facilitation Reps/Minutes x 10 reps Self-Care/Home Management Treatment Education Patient Education Home Exercise Program PT-OP-T Assessment and Plan Start: 08/20/18 19:52 Freq: Status: Active Protocol: Document 10/24/18 14:30 [facility] (Rec: 10/24/18 14:38 [facility] [email or web address]) Physical Therapy Assessment Assessment Summary Assessment Improved activation of the pelvic floor today to the best it has been. Average of 21 uv and max of 45.4 uv Physical Therapy Plan Frequency and Duration Frequency of Treatment 1x/Week Duration of Treatment 8 weeks Plan of Care Start Date 10/17/18 Plan of Care End Date 12/13/18 Next Visit Focus/Plan Next Note Type Treatment Note Next Visit Plan review TA in quadraped, templates for coordination and eccentric control, standing pelvic floor exercises
--- NOTE | 2018-11-13 14:07 | PT.OTN ---
Current Diagnoses Stress incontinence (female) (male) (11/13/18) Physical Therapy Treatment Note PT-OP-A Visit Information Start: 08/14/18 13:03 Freq: Status: Active Protocol: Document 11/13/18 14:00 [facility] (Rec: 11/13/18 14:07 [facility] [email or web address]) Out-Patient Physical Therapy Visit Information Visit Information Visit Type Treatment Note Visit Start Time 13:00 Visit Stop Time 13:45 Total Visit Minutes 45 Visit Number 7 PT-OP-B Current Condition Start: 08/14/18 13:03 Freq: Status: Active Protocol: Document 08/14/18 13:03 [facility] (Rec: 08/14/18 13:24 [facility] [id number]) Current Condition History of Current Condition Onset Date December SURGERY ANTERIOR AND POSTERIOR REPAIR History of Current Condition Trinity reports she had a anterior/posterior repair to fix her pelvic organ prolapse she had been feeling. Since surgery she is not feeling the heaviness but she has experienced progressive leakage since then with activities such as getting in and out of the car, squatting, getting in and out of her bed at night, or getting up out of the sofa. She reports she will soak through a panty liner. She notes she tries to void every couple of hours There are also drips that happen that she is not aware of throughout the day. She also reports c/o pain twinges across her abdomen that began following surgery. She does note that symptoms are getting better from where they were post surgery but this is slow. Treatment Goals Patient/Caregiver Goals Treatment goals include eliminating urinary incontinence and decreasing abdominal discomfort Prior Functional Status Baseline Function- ADL's Independent Baseline Function- Mobility Independent Current Functional Impairments (Reported) Functional Limitations- ADL's leakage occurs with positional changes such as getting off the couch and getting out of bed Functional Limitations- Recreation/ leakage with light activity Hobbies and exercise PT-OP-C Subjective Start: 08/14/18 13:03 Freq: Status: Active Protocol: Document 11/13/18 14:00 [facility] (Rec: 11/13/18 14:07 [facility] [email or web address]) OP-PT Subjective Patient Comments Patient Comments Trinity reports she is no longer leaking with coughing and is doing better with her pelvic floor overall. She feels independent with her home program and is ready to DC. She does get some abdominal soreness for a few days after her exercises but overall abdominal discomfort is decreased. PT-OP-F Manual Assessment Start: 08/20/18 19:52 Freq: Status: Active Protocol: Document 08/14/18 13:00 [facility] (Rec: 08/20/18 20:22 [facility] [email or web address]) Manual Assessments Soft Tissue Assessment Soft Tissue Mobility Assessment myofascial restrictions across the abdomen with tenderness Right greater than left iliopsoas region Tightness of B iliopsoas myofascial tightness across the bladder and suprapubic fascia PT-OP-I Pelvic Floor Start: 08/20/18 19:52 Freq: Status: Active Protocol: Document 10/17/18 13:00 [facility] (Rec: 10/23/18 11:12 [facility] [email or web address]) Pelvic Floor Assessment Pelvic Clock Pelvic Clock 12-3 Atrophy Pelvic Clock 3-6 Atrophy Pelvic Clock Other no longer note the swelling SEMG (uV) Baseline 0 10 Second Contraction 14.3 Recruitment Pattern Good Relaxation Good Holding Good Stability of Hold Good SEMG Stability of Rest Good Contraction Ability Voluntary Contraction Moderate Voluntary Relaxation Moderate Manual Muscle Testing Left 3 Manual Muscle Testing Right 3 Manual Muscle Testing Anterior 3 Manual Muscle Testing Posterior 3 Muscle Endurance (Seconds) 10 PT-OP-J Posture/Palpation/Skin Start: 08/20/18 19:52 Freq: Status: Active Protocol: Document 08/14/18 13:00 [facility] (Rec: 08/20/18 20:22 [facility] [email or web address]) Palpation Assessment Location One Palpation Location anterior abdominal region Palpation Findings Soft Tissue Tightness Muscle Guarding Palpation Details tenderness across the anterior abdominal wall and over the bladder PT-OP-Q Treatments Start: 08/20/18 19:52 Freq: Status: Active Protocol: Document 11/13/18 14:00 [facility] (Rec: 11/13/18 14:07 [facility] [email or web address]) Therapeutic Exercises Supine Exercises 6 Supine Exercise Name TA with SLR Reps/Minutes 2 x 10 reps 3 Supine Exercise Name TA faciliation Comments added in marches and SLR with TA facilitation 2 Supine Exercise Name pelvic floor contraction long holds Reps/Minutes 10 seconds x 10 reps 1 Supine Exercise Name iliopsoas stretch off the edge of the bed Comments much imrpoved iliopsoas length Sidelying Exercises 2 Sidelying Exercise Name sidelying hip abduction Reps/Minutes 10 1 Sidelying Exercise Name clam shells Reps/Minutes 10 Other Exercises 2 Other Exercise Name cat cow Reps/Minutes x 10 1 Other Exercise Name quadraped TA facilitation Reps/Minutes x 10 reps Self-Care/Home Management Treatment Education Patient Education Home Exercise Program Other Education ILU self massage was reviewed PT-OP-T Assessment and Plan Start: 08/20/18 19:52 Freq: Status: Active Protocol: Document 11/13/18 14:00 [facility] (Rec: 11/13/18 14:07 [facility] [email or web address]) Physical Therapy Assessment Goals Three Impairment Urinary incontinence with exercise, light activity, changing positions Short Term Goal (STG) Nakia is educated on pelvic floor engagement prior to positional changes to decrease leakage with change of position GOAL MET STG Duration 3-4 weeks Detention Goal (LTG) Trinity is able to eliminate incontinence with her exercise activities EXCELLENT PROGRESS LTG Duration 8 weeks Two Impairment Decreased pelvic floor endurance at 4 seconds Short Term Goal (STG) Trinity is able to sustain a pelvic floor contraction for 10 seconds in supine STG Duration 4 weeks Steamfitter Supervisor Goal (LTG) Trinity is able to sustain a pelvic floor contraction for 10 seconds in a standing pelvic floor position GOAL MET LTG Duration 8 weeks One Impairment Pelvic floor weakness 3/5 MMT all parts of the levator ani Steamfitter Supervisor Goal (LTG) Trinity demonstrates improved strength of her pelvic floor to 4/5 or better for improved support of the pelvic organs EXCELLENT PROGRESS LTG Duration 8 weeks Progress Towards Goals Progress Towards Goals Progressing Toward Goals Assessment Summary Assessment Improved activation of the pelvic floor overall. IT took a bit longer with therapy due to a bad cough that Trinity came down with. Her pelvic floor strength on EMG has improved greatly to a Average of 21 uv and max of 45.4 uv. She feels independent with her home program and has made excellent overall progress. She will be discharged to a home program. Thank you for this referral. Physical Therapy Plan Discharge Physical Therapy Discharge Reasons No Longer Attending PT Discharge Comments Pt has made excellent progress and feels independent with her home exercise program.
== END 2018-11-16 10:59 | disposition home or self-care (01) ==
LOC: PHYS 13:00
PROVIDERS: PCP Physician Assistant; Visit Provider Obstetrics & Gynecology
DX: N39.3 Stress incontinence (female) (male) (principal)
CPT/HCPCS: 97110; 97140; 97162

== ENCOUNTER → 2019-02-12 11:11 | Outpatient (CLI) | payer MEDICARE, BC, SELFPAY ==
[2018-01-25 12:04] VITALS: BMI 29.6
[2019-02-12 11:56] LABS: Add Manual Diff / Slide Review NO; Basophils Absolute Auto 100 /uL (0-100); Basophils Percent Auto 1.7 % (0-2); Eosinophils Absolute Auto 100 /uL (0-450); Eosinophils Percent Auto 2.1 % (2-4); Hematocrit 37.9 % (36-46); Hemoglobin 12.8 g/dL (12.0-16.0); Lymphocytes Absolute Auto 1100 /uL (1100-4500); Mean Corpuscular HGB Conc 33.9 % (30-36); Mean Corpuscular Hemoglobin 31.9 PG (26-34); Mean Corpuscular Volume 94.3 fL (80-100); Monocytes Absolute Auto 500 /uL (0-900); Monocytes Percent Auto 11.5 % (3-14); Neutrophils Absolute Auto 2700 /uL (1500-7000); Neutrophils Percent Auto 60.7 % (50-75); Platelet Count 248 X10^3/uL (150-400); Red Blood Cell Count 4.02 X10^6/uL (4.0-5.2); Red Cell Distribution Width 14.4 % (11.6-14.8); White Blood Cell Count 4.5 X10^3/uL (4.5-11.0)
[2019-02-12 12:18] LABS: Alanine Aminotransferase 30 IU/L (<35); Albumin 4.7 g/dL (3.5-5.0); Albumin Globulin Ratio 1.6 (1.0-2.8); Alkaline Phosphatase 58 U/L (38-126); Aspartate Aminotransferase 33 IU/L (14-36); BUN Creatinine Ratio 23.8 (6-22); Bilirubin Total 0.5 mg/dL (0.2-1.3); Blood Urea Nitrogen 19 mg/dL (7-17); Calcium 9.8 mg/dL (8.4-10.2); Carbon Dioxide 25 mmol/L (22-32); Chloride 106 mmol/L (98-107); Estimated Glomerular Filt Rate > 60.0 mL/min (>60); Glucose 78 mg/dL (80-110); HEMOLYSIS < 15 (0-50); Potassium 4.1 mmol/L (3.4-5.1); Sodium 141 mmol/L (137-145); Total Protein 7.7 g/dL (6.3-8.2)
== END ==
PROVIDERS: PCP Physician Assistant; Visit Provider Physician Assistant
DX: E78.2 Mixed hyperlipidemia (principal)
CPT/HCPCS: 36415; 80053; 85025

== ENCOUNTER → 2019-05-13 12:32 | Outpatient (CLI) | payer MEDICARE, BC, SELFPAY ==
[2018-01-25 12:04] VITALS: BMI 29.6
[2019-05-13 13:09] LABS: Add Manual Diff / Slide Review NO; Basophils Absolute Auto 0 /uL (0-100); Basophils Percent Auto 0.8 % (0-2); Eosinophils Absolute Auto 100 /uL (0-450); Eosinophils Percent Auto 2.1 % (2-4); Hematocrit 37.6 % (36-46); Hemoglobin 12.7 g/dL (12.0-16.0); Lymphocytes Absolute Auto 1100 /uL (1100-4500); Lymphocytes Percent Auto 21.6 % (25-40); Mean Corpuscular HGB Conc 33.7 % (30-36); Mean Corpuscular Hemoglobin 31.7 PG (26-34); Monocytes Absolute Auto 500 /uL (0-900); Monocytes Percent Auto 10.3 % (3-14); Neutrophils Absolute Auto 3200 /uL (1500-7000); Neutrophils Percent Auto 65.2 % (50-75); Platelet Count 254 X10^3/uL (150-400); Red Cell Distribution Width 14.4 % (11.6-14.8)
[2019-05-13 13:24] LABS: Alanine Aminotransferase 22 IU/L (<35); Albumin 4.6 g/dL (3.5-5.0); Albumin Globulin Ratio 1.4 (1.0-2.8); Alkaline Phosphatase 58 U/L (38-126); Aspartate Aminotransferase 29 IU/L (14-36); BUN Creatinine Ratio 23.8 (6-22); Bilirubin Total 0.4 mg/dL (0.2-1.3); Blood Urea Nitrogen 19 mg/dL (7-17); Calcium 9.9 mg/dL (8.4-10.2); Carbon Dioxide 25 mmol/L (22-32); Chloride 103 mmol/L (98-107); Estimated Glomerular Filt Rate > 60.0 mL/min (>60); Globulin 3.3 g/dL (1.7-4.1); Glucose 101 mg/dL (80-110); HEMOLYSIS < 15 (0-50); Potassium 4.6 mmol/L (3.4-5.1); Sodium 139 mmol/L (137-145); Total Protein 7.9 g/dL (6.3-8.2)
== END ==
PROVIDERS: PCP Physician Assistant; Referring Provider Internal Medicine Rheumatology; Visit Provider Internal Medicine Rheumatology
DX: M06.09 Rheumatoid arthritis without rheumatoid factor, multiple sites (principal)
CPT/HCPCS: 36415; 80053; 85025

== ENCOUNTER → 2019-10-31 15:32 | Outpatient (CLI) | payer MEDICARE, BC, SELFPAY ==
[2018-01-25 12:04] VITALS: BMI 29.6
[2019-10-31 17:16] LABS: Add Manual Diff / Slide Review NO; Basophils Absolute Auto 0 /uL (0-100); Basophils Percent Auto 0.7 % (0-2); Eosinophils Absolute Auto 100 /uL (0-450); Eosinophils Percent Auto 1.4 % (2-4); Hematocrit 36.7 % (36-46); Hemoglobin 12.4 g/dL (12.0-16.0); Lymphocytes Absolute Auto 1500 /uL (1100-4500); Lymphocytes Percent Auto 24.9 % (25-40); Mean Corpuscular HGB Conc 33.9 % (30-36); Mean Corpuscular Hemoglobin 31.9 PG (26-34); Mean Corpuscular Volume 94.3 fL (80-100); Monocytes Absolute Auto 700 /uL (0-900); Neutrophils Absolute Auto 3700 /uL (1500-7000); Platelet Count 251 X10^3/uL (150-400); Red Blood Cell Count 3.89 X10^6/uL (4.0-5.2); Red Cell Distribution Width 14.3 % (11.6-14.8)
[2019-10-31 17:30] LABS: Alanine Aminotransferase 26 IU/L (<35); Albumin 4.6 g/dL (3.5-5.0); Albumin Globulin Ratio 1.7 (1.0-2.8); Alkaline Phosphatase 59 U/L (38-126); Aspartate Aminotransferase 31 IU/L (14-36); BUN Creatinine Ratio 23.6 (6-22); Bilirubin Total 0.4 mg/dL (0.2-1.3); Blood Urea Nitrogen 17 mg/dL (7-17); Calcium 10.2 mg/dL (8.4-10.2); Carbon Dioxide 27 mmol/L (22-32); Chloride 104 mmol/L (98-107); Estimated Glomerular Filt Rate > 60.0 mL/min (>60); Globulin 2.7 g/dL (1.7-4.1); Glucose 87 mg/dL (80-110); HEMOLYSIS < 15 (0-50); Potassium 4.9 mmol/L (3.4-5.1); Sodium 139 mmol/L (137-145); Total Protein 7.3 g/dL (6.3-8.2)
== END ==
PROVIDERS: PCP Physician Assistant; Referring Provider Internal Medicine Rheumatology; Visit Provider Internal Medicine Rheumatology
DX: Z79.899 Other long term (current) drug therapy (principal); M06.09 Rheumatoid arthritis without rheumatoid factor, multiple sites
CPT/HCPCS: 36415; 80053; 85025

== ENCOUNTER → 2020-01-30 12:38 | Outpatient (CLI) | payer MEDICARE, BC, SELFPAY ==
[2018-01-25 12:04] VITALS: BMI 29.6
[2020-01-30 13:18] LABS: Add Manual Diff / Slide Review NO; Basophils Absolute Auto 100 /uL (0-100); Eosinophils Absolute Auto 100 /uL (0-450); Eosinophils Percent Auto 1.8 % (2-4); Hematocrit 37.3 % (36-46); Hemoglobin 12.3 g/dL (12.0-16.0); Lymphocytes Absolute Auto 1100 /uL (1100-4500); Lymphocytes Percent Auto 18.9 % (25-40); Mean Corpuscular HGB Conc 33.1 % (30-36); Mean Corpuscular Hemoglobin 31.8 PG (26-34); Mean Corpuscular Volume 95.9 fL (80-100); Monocytes Absolute Auto 600 /uL (0-900); Monocytes Percent Auto 11.1 % (3-14); Neutrophils Absolute Auto 3800 /uL (1500-7000); Neutrophils Percent Auto 67.2 % (50-75); Platelet Count 245 X10^3/uL (150-400); Red Blood Cell Count 3.88 X10^6/uL (4.0-5.2); Red Cell Distribution Width 14.3 % (11.6-14.8); White Blood Cell Count 5.6 X10^3/uL (4.5-11.0)
[2020-01-30 13:40] LABS: Alanine Aminotransferase 27 IU/L (<35); Albumin 4.6 g/dL (3.5-5.0); Albumin Globulin Ratio 1.5 (1.0-2.8); Alkaline Phosphatase 56 U/L (38-126); Aspartate Aminotransferase 30 IU/L (14-36); BUN Creatinine Ratio 23.2 (6-22); Bilirubin Total 0.3 mg/dL (0.2-1.3); Blood Urea Nitrogen 16 mg/dL (7-17); Calcium 9.5 mg/dL (8.4-10.2); Carbon Dioxide 28 mmol/L (22-32); Chloride 106 mmol/L (98-107); Estimated Glomerular Filt Rate > 60.0 mL/min (>60); Globulin 3.1 g/dL (1.7-4.1); Glucose 101 mg/dL (80-110); HEMOLYSIS < 15 (0-50); Potassium 4.2 mmol/L (3.4-5.1); Sodium 140 mmol/L (137-145); Total Protein 7.7 g/dL (6.3-8.2)
== END ==
PROVIDERS: PCP Physician Assistant; Referring Provider Internal Medicine Rheumatology; Visit Provider Internal Medicine Rheumatology
DX: M06.09 Rheumatoid arthritis without rheumatoid factor, multiple sites (principal)
CPT/HCPCS: 36415; 80053; 85025

== ENCOUNTER → 2020-01-31 13:47 | Outpatient (CLI) | payer MEDICARE, BC, SELFPAY ==
[2018-01-25 12:04] VITALS: BMI 29.6
--- NOTE | 2020-01-31 | DI.RAD.S_ITS ---
PROCEDURE: XR FOOT LT MIN 3V INDICATIONS: LEFT FOOT PAIN TECHNIQUE: 3 views of the foot were acquired. COMPARISON: None. FINDINGS: Bones: No fracture. Mild 1st MTP joint degeneration. Os peroneum incidentally noted. Plantar calcaneal spur. Scattered degenerative subchondral sclerosis and spurring. Soft tissues: No tibiotalar joint effusion. Achilles tendon appears normal. IMPRESSION: Degenerative changes as above. If the patient's pain or other symptoms persist, consider further evaluation with MRI Dictated by: Venu Soliz M.D. on 01/31/2020 at 17:16 Approved by: Venu Soliz M.D. on 01/31/2020 at 17:17
== END ==
PROVIDERS: PCP Physician Assistant; Referring Provider Physician Assistant; Visit Provider Physician Assistant
DX: M79.672 Pain in left foot (principal); M19.072 Primary osteoarthritis, left ankle and foot
CPT/HCPCS: 73630

== ENCOUNTER → 2020-05-21 12:47 | Outpatient (CLI) | payer MEDICARE, BC, SELFPAY ==
[2018-01-25 12:04] VITALS: BMI 29.6
[2020-05-21 14:50] LABS: Add Manual Diff / Slide Review NO; Basophils Absolute Auto 100 /uL (0-100); Basophils Percent Auto 0.9 % (0-2); Eosinophils Absolute Auto 100 /uL (0-450); Eosinophils Percent Auto 1.8 % (2-4); Hematocrit 36.7 % (36-46); Hemoglobin 12.1 g/dL (12.0-16.0); Lymphocytes Absolute Auto 1000 /uL (1100-4500); Lymphocytes Percent Auto 17.2 % (25-40); Mean Corpuscular Hemoglobin 31.6 PG (26-34); Mean Corpuscular Volume 95.6 fL (80-100); Monocytes Absolute Auto 600 /uL (0-900); Monocytes Percent Auto 10.1 % (3-14); Neutrophils Absolute Auto 4200 /uL (1500-7000); Platelet Count 291 X10^3/uL (150-400); Red Blood Cell Count 3.84 X10^6/uL (4.0-5.2); Red Cell Distribution Width 14.1 % (11.6-14.8); White Blood Cell Count 5.9 X10^3/uL (4.5-11.0)
[2020-05-21 14:54] LABS: Alanine Aminotransferase 25 IU/L (<35); Albumin 4.1 g/dL (3.5-5.0); Albumin Globulin Ratio 1.3 (1.0-2.8); Alkaline Phosphatase 56 U/L (38-126); Aspartate Aminotransferase 27 IU/L (14-36); BUN Creatinine Ratio 16.9 (6-22); Bilirubin Total 0.3 mg/dL (0.2-1.3); Blood Urea Nitrogen 13 mg/dL (7-17); Calcium 9.6 mg/dL (8.4-10.2); Carbon Dioxide 27 mmol/L (22-32); Chloride 107 mmol/L (98-107); Estimated Glomerular Filt Rate > 60.0 mL/min (>60); Globulin 3.1 g/dL (1.7-4.1); Glucose 99 mg/dL (80-110); HEMOLYSIS < 15 (0-50); Potassium 4.2 mmol/L (3.4-5.1); Sodium 139 mmol/L (137-145); Total Protein 7.2 g/dL (6.3-8.2)
== END ==
PROVIDERS: PCP Physician Assistant; Referring Provider Internal Medicine Rheumatology; Visit Provider Internal Medicine Rheumatology
DX: M06.09 Rheumatoid arthritis without rheumatoid factor, multiple sites (principal); Z79.899 Other long term (current) drug therapy
CPT/HCPCS: 36415; 80053; 85025

== ENCOUNTER → 2020-08-12 08:49 | Outpatient (CLI) | payer MEDICARE, BC, SELFPAY ==
[2018-01-25 12:04] VITALS: BMI 29.6
[2020-08-12 09:40] LABS: Add Manual Diff / Slide Review NO; Basophils Absolute Auto 100 /uL (0-100); Basophils Percent Auto 1.5 % (0-2); Eosinophils Absolute Auto 100 /uL (0-450); Eosinophils Percent Auto 1.8 % (2-4); Hematocrit 37.8 % (36-46); Hemoglobin 12.5 g/dL (12.0-16.0); Lymphocytes Absolute Auto 1200 /uL (1100-4500); Lymphocytes Percent Auto 27.5 % (25-40); Mean Corpuscular Hemoglobin 31.5 PG (26-34); Mean Corpuscular Volume 95.4 fL (80-100); Monocytes Absolute Auto 400 /uL (0-900); Monocytes Percent Auto 9.8 % (3-14); Neutrophils Absolute Auto 2600 /uL (1500-7000); Neutrophils Percent Auto 59.4 % (50-75); Platelet Count 256 X10^3/uL (150-400); Red Blood Cell Count 3.97 X10^6/uL (4.0-5.2); Red Cell Distribution Width 14.8 % (11.6-14.8); White Blood Cell Count 4.3 X10^3/uL (4.5-11.0)
[2020-08-12 10:01] LABS: Alanine Aminotransferase 22 IU/L (<35); Albumin 4.5 g/dL (3.5-5.0); Albumin Globulin Ratio 1.5 (1.0-2.8); Alkaline Phosphatase 59 U/L (38-126); Aspartate Aminotransferase 28 IU/L (14-36); BUN Creatinine Ratio 22.7 (6-22); Bilirubin Total 0.3 mg/dL (0.2-1.3); Blood Urea Nitrogen 17 mg/dL (7-17); Calcium 9.8 mg/dL (8.4-10.2); Carbon Dioxide 26 mmol/L (22-32); Chloride 106 mmol/L (98-107); Cholesterol 148 mg/dL (140-199); Estimated Glomerular Filt Rate > 60.0 mL/min (>60); Glucose 94 mg/dL (80-110); HDL Cholesterol 56 mg/dL (40-60); HEMOLYSIS < 15 (0-50); LDL Cholesterol Calculated 76 mg/dL (<100); Potassium 4.2 mmol/L (3.4-5.1); Sodium 140 mmol/L (137-145); Total Protein 7.5 g/dL (6.3-8.2); Triglycerides 78 mg/dL (35-150)
[2020-08-12 10:10] LABS: HEMOLYSIS < 15 (0-50); Iron 72 ug/dL (37-170)
[2020-08-12 10:21] LABS: Percent Iron Saturation 25 % (15-50); Total Iron Binding Capacity 287 ug/dL (265-497); Transferrin 233 mg/dL (206-381)
[2020-08-12 10:29] LABS: Vitamin D 25 Hydroxy (D3) 104 ng/mL (30.0-100.0)
[2020-08-12 10:34] LABS: Ferritin 90 ng/mL (11-264)
[2020-08-12 10:49] LABS: Vitamin B12 560 pg/mL (239-931)
== END ==
PROVIDERS: PCP Physician Assistant; Referring Provider Physician Assistant; Visit Provider Physician Assistant
DX: M06.09 Rheumatoid arthritis without rheumatoid factor, multiple sites (principal); E78.2 Mixed hyperlipidemia; I10 Essential (primary) hypertension; M06.9 Rheumatoid arthritis, unspecified; Z79.899 Other long term (current) drug therapy; M85.9 Disorder of bone density and structure, unspecified; E55.9 Vitamin D deficiency, unspecified; E56.9 Vitamin deficiency, unspecified
CPT/HCPCS: 36415; 80053; 80061; 82306; 82607; 82728; 83540; 83550; 85025

== ENCOUNTER → 2020-11-19 13:13 | Outpatient (CLI) | payer MEDICARE, BC, SELFPAY ==
[2018-01-25 12:04] VITALS: BMI 29.6
[2020-11-19 13:48] LABS: Add Manual Diff / Slide Review NO; Basophils Absolute Auto 0 /uL (0-100); Basophils Percent Auto 0.8 % (0-2); Eosinophils Absolute Auto 100 /uL (0-450); Eosinophils Percent Auto 1.5 % (2-4); Hemoglobin 12.8 g/dL (12.0-16.0); Lymphocytes Absolute Auto 1100 /uL (1100-4500); Lymphocytes Percent Auto 22.3 % (25-40); Mean Corpuscular HGB Conc 32.9 % (30-36); Mean Corpuscular Hemoglobin 31.3 PG (26-34); Mean Corpuscular Volume 95.1 fL (80-100); Monocytes Absolute Auto 600 /uL (0-900); Monocytes Percent Auto 13.4 % (3-14); Neutrophils Absolute Auto 2900 /uL (1500-7000); Platelet Count 248 X10^3/uL (150-400); Red Cell Distribution Width 14.7 % (11.6-14.8); White Blood Cell Count 4.8 X10^3/uL (4.5-11.0)
[2020-11-19 14:04] LABS: Alanine Aminotransferase 25 IU/L (<35); Albumin 4.5 g/dL (3.5-5.0); Albumin Globulin Ratio 1.6 (1.0-2.8); Alkaline Phosphatase 56 U/L (38-126); Aspartate Aminotransferase 28 IU/L (14-36); BUN Creatinine Ratio 24.3 (6-22); Bilirubin Total 0.3 mg/dL (0.2-1.3); Blood Urea Nitrogen 18 mg/dL (7-17); Calcium 10.1 mg/dL (8.4-10.2); Carbon Dioxide 26 mmol/L (22-32); Chloride 104 mmol/L (98-107); Estimated Glomerular Filt Rate > 60.0 mL/min (>60); Globulin 2.9 g/dL (1.7-4.1); Glucose 83 mg/dL (80-110); HEMOLYSIS < 15 (0-50); Potassium 4.3 mmol/L (3.4-5.1); Sodium 138 mmol/L (137-145); Total Protein 7.4 g/dL (6.3-8.2)
== END ==
PROVIDERS: PCP Physician Assistant; Referring Provider Internal Medicine Rheumatology; Visit Provider Internal Medicine Rheumatology
DX: Z79.899 Other long term (current) drug therapy (principal); M06.09 Rheumatoid arthritis without rheumatoid factor, multiple sites
CPT/HCPCS: 36415; 80053; 85025

== ENCOUNTER → 2021-02-23 12:31 | Outpatient (CLI) | payer MEDICARE, BC, SELFPAY ==
[2018-01-25 12:04] VITALS: BMI 29.6
[2021-02-23 13:50] LABS: Add Manual Diff / Slide Review NO; Basophils Absolute Auto 100 /uL (0-100); Basophils Percent Auto 1.1 % (0-2); Eosinophils Absolute Auto 100 /uL (0-450); Eosinophils Percent Auto 2.1 % (2-4); Hematocrit 36.4 % (36-46); Hemoglobin 12.3 g/dL (12.0-16.0); Lymphocytes Absolute Auto 1000 /uL (1100-4500); Lymphocytes Percent Auto 20.7 % (25-40); Mean Corpuscular HGB Conc 33.7 % (30-36); Mean Corpuscular Hemoglobin 31.6 PG (26-34); Mean Corpuscular Volume 93.7 fL (80-100); Monocytes Absolute Auto 500 /uL (0-900); Monocytes Percent Auto 11.5 % (3-14); Neutrophils Absolute Auto 3000 /uL (1500-7000); Neutrophils Percent Auto 64.6 % (50-75); Platelet Count 248 X10^3/uL (150-400); Red Blood Cell Count 3.88 X10^6/uL (4.0-5.2); Red Cell Distribution Width 14.3 % (11.6-14.8); White Blood Cell Count 4.7 X10^3/uL (4.5-11.0)
[2021-02-23 14:16] LABS: Erythrocyte Sedimentation Rate 29 MM/HR (0-20)
[2021-02-23 15:04] LABS: Alanine Aminotransferase 27 IU/L (<35); Albumin 4.5 g/dL (3.5-5.0); Albumin Globulin Ratio 1.7 (1.0-2.8); Alkaline Phosphatase 57 U/L (38-126); Aspartate Aminotransferase 30 IU/L (14-36); BUN Creatinine Ratio 24.7 (6-22); Bilirubin Total 0.4 mg/dL (0.2-1.3); Blood Urea Nitrogen 18 mg/dL (7-17); C-Reactive Protein Quant 0.8 mg/dL (<1.0); Calcium 9.8 mg/dL (8.4-10.2); Carbon Dioxide 26 mmol/L (22-32); Chloride 102 mmol/L (98-107); Estimated Glomerular Filt Rate > 60.0 mL/min (>60); Globulin 2.6 g/dL (1.7-4.1); Glucose 84 mg/dL (80-110); HEMOLYSIS < 15 (0-50); Potassium 4.4 mmol/L (3.4-5.1); Sodium 138 mmol/L (137-145); Total Protein 7.1 g/dL (6.3-8.2)
== END ==
PROVIDERS: PCP Physician Assistant; Referring Provider Internal Medicine Rheumatology; Visit Provider Internal Medicine Rheumatology
DX: Z79.899 Other long term (current) drug therapy (principal); M06.09 Rheumatoid arthritis without rheumatoid factor, multiple sites
CPT/HCPCS: 36415; 80053; 85025; 85651; 86140

== ENCOUNTER → 2021-05-26 12:52 | Outpatient (CLI) | payer MEDICARE, BC, SELFPAY ==
[2018-01-25 12:04] VITALS: BMI 29.6
[2021-05-26 14:28] LABS: Add Manual Diff / Slide Review NO; Basophils Absolute Auto 0 /uL (0-100); Eosinophils Absolute Auto 100 /uL (0-450); Eosinophils Percent Auto 1.8 % (2-4); Hematocrit 37.5 % (36-46); Hemoglobin 12.8 g/dL (12.0-16.0); Lymphocytes Absolute Auto 1200 /uL (1100-4500); Lymphocytes Percent Auto 24.1 % (25-40); Mean Corpuscular HGB Conc 34.2 % (30-36); Mean Corpuscular Hemoglobin 31.8 PG (26-34); Mean Corpuscular Volume 92.8 fL (80-100); Monocytes Absolute Auto 600 /uL (0-900); Monocytes Percent Auto 12.2 % (3-14); Neutrophils Absolute Auto 3000 /uL (1500-7000); Neutrophils Percent Auto 60.9 % (50-75); Platelet Count 263 X10^3/uL (150-400); Red Blood Cell Count 4.04 X10^6/uL (4.0-5.2); Red Cell Distribution Width 14.1 % (11.6-14.8); White Blood Cell Count 4.9 X10^3/uL (4.5-11.0)
[2021-05-26 14:45] LABS: Erythrocyte Sedimentation Rate 25 MM/HR (0-20)
[2021-05-26 15:11] LABS: Alanine Aminotransferase 22 IU/L (<35); Albumin 4.8 g/dL (3.5-5.0); Albumin Globulin Ratio 1.6 (1.0-2.8); Alkaline Phosphatase 58 U/L (38-126); Aspartate Aminotransferase 26 IU/L (14-36); BUN Creatinine Ratio 23.1 (6-22); Bilirubin Total 0.4 mg/dL (0.2-1.3); Blood Urea Nitrogen 18 mg/dL (7-17); C-Reactive Protein Quant 0.7 mg/dL (<1.0); Calcium 9.8 mg/dL (8.4-10.2); Carbon Dioxide 27 mmol/L (22-32); Chloride 104 mmol/L (98-107); Estimated Glomerular Filt Rate > 60.0 mL/min (>60); Glucose 88 mg/dL (80-110); HEMOLYSIS < 15 (0-50); Potassium 4.6 mmol/L (3.4-5.1); Sodium 139 mmol/L (137-145); Total Protein 7.8 g/dL (6.3-8.2)
== END ==
PROVIDERS: PCP Physician Assistant; Referring Provider Internal Medicine Rheumatology; Visit Provider Internal Medicine Rheumatology
DX: Z79.899 Other long term (current) drug therapy (principal); M06.09 Rheumatoid arthritis without rheumatoid factor, multiple sites
CPT/HCPCS: 36415; 80053; 85025; 85651; 86140

== ENCOUNTER → 2021-09-08 14:51 | Outpatient (CLI) | payer MEDICARE, BC, SELFPAY ==
[2018-01-25 12:04] VITALS: BMI 29.6
[2021-09-08 16:35] LABS: Add Manual Diff / Slide Review NO; Basophils Absolute Auto 100 /uL (0-100); Basophils Percent Auto 1.2 % (0-2); Eosinophils Absolute Auto 100 /uL (0-450); Eosinophils Percent Auto 2.5 % (2-4); Hematocrit 36.3 % (36-46); Hemoglobin 12.4 g/dL (12.0-16.0); Lymphocytes Absolute Auto 1100 /uL (1100-4500); Lymphocytes Percent Auto 23.3 % (25-40); Mean Corpuscular HGB Conc 34.2 % (30-36); Mean Corpuscular Hemoglobin 32.1 PG (26-34); Mean Corpuscular Volume 93.7 fL (80-100); Monocytes Absolute Auto 500 /uL (0-900); Monocytes Percent Auto 10.5 % (3-14); Neutrophils Absolute Auto 2900 /uL (1500-7000); Neutrophils Percent Auto 62.5 % (50-75); Platelet Count 248 X10^3/uL (150-400); Red Blood Cell Count 3.88 X10^6/uL (4.0-5.2); Red Cell Distribution Width 14.6 % (11.6-14.8); White Blood Cell Count 4.6 X10^3/uL (4.5-11.0)
[2021-09-08 17:47] LABS: HEMOLYSIS < 15 (0-50); Potassium 4.3 mmol/L (3.4-5.1)
[2021-09-08 17:49] LABS: Alanine Aminotransferase 21 IU/L (<35); Albumin 4.4 g/dL (3.5-5.0); Albumin Globulin Ratio 1.4 (1.0-2.8); Alkaline Phosphatase 63 U/L (38-126); Aspartate Aminotransferase 28 IU/L (14-36); BUN Creatinine Ratio 23.4 (6-22); Bilirubin Total 0.3 mg/dL (0.2-1.3); Blood Urea Nitrogen 18 mg/dL (7-17); C-Reactive Protein Quant 1.1 mg/dL (<1.0); Calcium 9.6 mg/dL (8.4-10.2); Carbon Dioxide 26 mmol/L (22-32); Chloride 105 mmol/L (98-107); Estimated Glomerular Filt Rate > 60 mL/min (>60); Globulin 3.1 g/dL (1.7-4.1); Glucose 102 mg/dL (80-110); Sodium 138 mmol/L (137-145); Total Protein 7.5 g/dL (6.3-8.2)
[2021-09-08 18:39] LABS: Erythrocyte Sedimentation Rate 28 MM/HR (0-20)
== END ==
PROVIDERS: PCP Physician Assistant; Referring Provider Internal Medicine Rheumatology; Visit Provider Internal Medicine Rheumatology
DX: M06.09 Rheumatoid arthritis without rheumatoid factor, multiple sites (principal); Z79.899 Other long term (current) drug therapy
CPT/HCPCS: 36415; 80053; 85025; 85651; 86140

== ENCOUNTER → 2021-12-08 13:25 | Outpatient (CLI) | payer MEDICARE, BC, SELFPAY ==
[2018-01-25 12:04] VITALS: BMI 29.6
[2021-12-08 14:12] LABS: Add Manual Diff / Slide Review NO; Basophils Absolute Auto 100 /uL (0-100); Basophils Percent Auto 1.2 % (0-2); Eosinophils Absolute Auto 100 /uL (0-450); Eosinophils Percent Auto 2.2 % (2-4); Hematocrit 35.1 % (36-46); Hemoglobin 12.3 g/dL (12.0-16.0); Lymphocytes Absolute Auto 1100 /uL (1100-4500); Lymphocytes Percent Auto 22.3 % (25-40); Mean Corpuscular HGB Conc 35.1 % (30-36); Mean Corpuscular Hemoglobin 32.4 PG (26-34); Mean Corpuscular Volume 92.5 fL (80-100); Monocytes Absolute Auto 600 /uL (0-900); Neutrophils Absolute Auto 3000 /uL (1500-7000); Neutrophils Percent Auto 62.3 % (50-75); Platelet Count 246 X10^3/uL (150-400); Red Blood Cell Count 3.79 X10^6/uL (4.0-5.2); Red Cell Distribution Width 14.4 % (11.6-14.8); White Blood Cell Count 4.8 X10^3/uL (4.5-11.0)
[2021-12-08 14:42] LABS: Alanine Aminotransferase 22 IU/L (<35); Albumin 4.4 g/dL (3.5-5.0); Albumin Globulin Ratio 1.5 (1.0-2.8); Alkaline Phosphatase 59 U/L (38-126); Aspartate Aminotransferase 24 IU/L (14-36); Bilirubin Total 0.3 mg/dL (0.2-1.3); Blood Urea Nitrogen 15 mg/dL (7-17); C-Reactive Protein Quant 1.2 mg/dL (<1.0); Calcium 9.6 mg/dL (8.4-10.2); Carbon Dioxide 24 mmol/L (22-32); Chloride 104 mmol/L (98-107); Estimated Glomerular Filt Rate > 60 mL/min (>60); Glucose 91 mg/dL (80-110); HEMOLYSIS < 15 (0-50); Potassium 4.4 mmol/L (3.4-5.1); Sodium 138 mmol/L (137-145); Total Protein 7.4 g/dL (6.3-8.2)
[2021-12-08 15:42] LABS: Erythrocyte Sedimentation Rate 17 MM/HR (0-20)
== END ==
PROVIDERS: PCP Physician Assistant; Referring Provider Internal Medicine Rheumatology; Visit Provider Internal Medicine Rheumatology
DX: Z79.899 Other long term (current) drug therapy (principal); M06.09 Rheumatoid arthritis without rheumatoid factor, multiple sites
CPT/HCPCS: 36415; 80053; 85025; 85651; 86140

== ENCOUNTER → 2022-03-23 13:54 | Outpatient (CLI) | payer MEDICARE, BC, SELFPAY ==
[2018-01-25 12:04] VITALS: BMI 29.6
[2022-03-23 14:21] LABS: Add Manual Diff / Slide Review NO; Basophils Absolute Auto 100 /uL (0-100); Basophils Percent Auto 1.2 % (0-2); Eosinophils Absolute Auto 100 /uL (0-450); Eosinophils Percent Auto 2.7 % (2-4); Hemoglobin 12.7 g/dL (12.0-16.0); Lymphocytes Absolute Auto 900 /uL (1100-4500); Lymphocytes Percent Auto 19.1 % (25-40); Mean Corpuscular HGB Conc 34.4 % (30-36); Mean Corpuscular Hemoglobin 32.2 PG (26-34); Mean Corpuscular Volume 93.4 fL (80-100); Monocytes Absolute Auto 600 /uL (0-900); Monocytes Percent Auto 12.6 % (3-14); Neutrophils Absolute Auto 3200 /uL (1500-7000); Neutrophils Percent Auto 64.4 % (50-75); Platelet Count 238 X10^3/uL (150-400); Red Blood Cell Count 3.95 X10^6/uL (4.0-5.2); Red Cell Distribution Width 14.2 % (11.6-14.8); White Blood Cell Count 4.9 X10^3/uL (4.5-11.0)
[2022-03-23 14:38] LABS: Erythrocyte Sedimentation Rate 18 MM/HR (0-20)
[2022-03-23 14:47] LABS: Alanine Aminotransferase 26 IU/L (<35); Albumin 4.4 g/dL (3.5-5.0); Albumin Globulin Ratio 1.3 (1.0-2.8); Alkaline Phosphatase 58 U/L (38-126); Aspartate Aminotransferase 27 IU/L (14-36); BUN Creatinine Ratio 24.3 (6-22); Bilirubin Total 0.4 mg/dL (0.2-1.3); Blood Urea Nitrogen 18 mg/dL (7-17); C-Reactive Protein Quant < 0.5 mg/dL (<1.0); Calcium 9.4 mg/dL (8.4-10.2); Carbon Dioxide 26 mmol/L (22-32); Chloride 102 mmol/L (98-107); Estimated Glomerular Filt Rate > 60 mL/min (>60); Globulin 3.4 g/dL (1.7-4.1); Glucose 91 mg/dL (80-110); HEMOLYSIS < 15 (0-50); Potassium 4.3 mmol/L (3.4-5.1); Sodium 138 mmol/L (137-145); Total Protein 7.8 g/dL (6.3-8.2)
== END ==
PROVIDERS: PCP Physician Assistant; Referring Provider Internal Medicine Rheumatology; Visit Provider Internal Medicine Rheumatology
DX: M06.09 Rheumatoid arthritis without rheumatoid factor, multiple sites (principal); Z79.899 Other long term (current) drug therapy
CPT/HCPCS: 36415; 80053; 85025; 85651; 86140

== ENCOUNTER → 2022-07-19 12:59 | Outpatient (CLI) | payer MEDICARE, BC, SELFPAY ==
[2018-01-25 12:04] VITALS: BMI 29.6
[2022-07-19 14:13] LABS: Add Manual Diff / Slide Review NO; Basophils Absolute Auto 100 /uL (0-100); Basophils Percent Auto 1.4 % (0-2); Eosinophils Absolute Auto 100 /uL (0-450); Eosinophils Percent Auto 2.4 % (2-4); Hematocrit 36.7 % (36-46); Hemoglobin 12.4 g/dL (12.0-16.0); Lymphocytes Absolute Auto 1000 /uL (1100-4500); Lymphocytes Percent Auto 20.3 % (25-40); Mean Corpuscular HGB Conc 33.9 % (30-36); Mean Corpuscular Volume 94.2 fL (80-100); Monocytes Absolute Auto 600 /uL (0-900); Monocytes Percent Auto 12.3 % (3-14); Neutrophils Absolute Auto 3100 /uL (1500-7000); Neutrophils Percent Auto 63.6 % (50-75); Platelet Count 267 X10^3/uL (150-400); Red Blood Cell Count 3.89 X10^6/uL (4.0-5.2); Red Cell Distribution Width 14.6 % (11.6-14.8); White Blood Cell Count 4.8 X10^3/uL (4.5-11.0)
[2022-07-19 14:29] LABS: Erythrocyte Sedimentation Rate 20 MM/HR (0-20)
[2022-07-19 14:49] LABS: Alanine Aminotransferase 25 IU/L (<35); Albumin 4.5 g/dL (3.5-5.0); Albumin Globulin Ratio 1.6 (1.0-2.8); Alkaline Phosphatase 54 U/L (38-126); Aspartate Aminotransferase 26 IU/L (14-36); BUN Creatinine Ratio 23.2 (6-22); Bilirubin Total 0.3 mg/dL (0.2-1.3); Blood Urea Nitrogen 16 mg/dL (7-17); C-Reactive Protein Quant 1.1 mg/dL (<1.0); Calcium 9.6 mg/dL (8.4-10.2); Carbon Dioxide 25 mmol/L (22-32); Chloride 104 mmol/L (98-107); Estimated Glomerular Filt Rate > 60 mL/min (>60); Globulin 2.8 g/dL (1.7-4.1); Glucose 93 mg/dL (80-110); HEMOLYSIS < 15 (0-50); Potassium 4.5 mmol/L (3.4-5.1); Sodium 138 mmol/L (137-145); Total Protein 7.3 g/dL (6.3-8.2)
== END ==
PROVIDERS: PCP Physician Assistant; Referring Provider Internal Medicine Rheumatology; Visit Provider Internal Medicine Rheumatology
DX: Z79.899 Other long term (current) drug therapy (principal); M45.9 Ankylosing spondylitis of unspecified sites in spine; M06.09 Rheumatoid arthritis without rheumatoid factor, multiple sites
CPT/HCPCS: 36415; 80053; 85025; 85651; 86140

== ENCOUNTER → 2022-10-17 13:42 | Outpatient (CLI) | payer MEDICARE, BC, SELFPAY ==
[2018-01-25 12:04] VITALS: BMI 29.6
[2022-10-17 15:02] LABS: Add Manual Diff / Slide Review NO; Basophils Absolute Auto 100 /uL (0-100); Basophils Percent Auto 1.2 % (0-2); Eosinophils Absolute Auto 100 /uL (0-450); Eosinophils Percent Auto 1.8 % (2-4); Hematocrit 35.9 % (36-46); Hemoglobin 12.3 g/dL (12.0-16.0); Lymphocytes Absolute Auto 1100 /uL (1100-4500); Lymphocytes Percent Auto 20.6 % (25-40); Mean Corpuscular HGB Conc 34.1 % (30-36); Mean Corpuscular Hemoglobin 31.9 PG (26-34); Mean Corpuscular Volume 93.4 fL (80-100); Monocytes Absolute Auto 600 /uL (0-900); Monocytes Percent Auto 10.5 % (3-14); Neutrophils Absolute Auto 3500 /uL (1500-7000); Neutrophils Percent Auto 65.9 % (50-75); Platelet Count 273 X10^3/uL (150-400); Red Blood Cell Count 3.85 X10^6/uL (4.0-5.2); Red Cell Distribution Width 14.6 % (11.6-14.8); White Blood Cell Count 5.3 X10^3/uL (4.5-11.0)
[2022-10-17 15:17] LABS: Erythrocyte Sedimentation Rate 21 MM/HR (0-20)
[2022-10-17 16:37] LABS: Blood Urea Nitrogen 17 mg/dL (7-17); Carbon Dioxide 26 mmol/L (22-32); Chloride 103 mmol/L (98-107); HEMOLYSIS < 15 (0-50); Potassium 4.4 mmol/L (3.4-5.1); Sodium 138 mmol/L (137-145)
[2022-10-17 16:38] LABS: Alanine Aminotransferase 28 IU/L (<35); Albumin 4.3 g/dL (3.5-5.0); Albumin Globulin Ratio 1.6 (1.0-2.8); Alkaline Phosphatase 57 U/L (38-126); Aspartate Aminotransferase 28 IU/L (14-36); BUN Creatinine Ratio 25.8 (6-22); Bilirubin Total 0.3 mg/dL (0.2-1.3); C-Reactive Protein Quant 0.6 mg/dL (<1.0); Calcium 9.5 mg/dL (8.4-10.2); Estimated Glomerular Filt Rate > 60 mL/min (>60); Globulin 2.7 g/dL (1.7-4.1); Glucose 99 mg/dL (80-110)
== END ==
PROVIDERS: PCP Physician Assistant; Referring Provider Internal Medicine Rheumatology; Visit Provider Internal Medicine Rheumatology
DX: Z79.899 Other long term (current) drug therapy (principal); M45.9 Ankylosing spondylitis of unspecified sites in spine; M06.09 Rheumatoid arthritis without rheumatoid factor, multiple sites
CPT/HCPCS: 36415; 80053; 85025; 85651; 86140

== ENCOUNTER → 2022-11-02 14:39 | Outpatient (CLI) | payer MEDICARE, BC, SELFPAY ==
[2018-01-25 12:04] VITALS: BMI 29.6
[2022-11-02 15:40] LABS: Cholesterol 169 mg/dL (140-199); HDL Cholesterol 61 mg/dL (40-60); LDL Cholesterol Calculated 82 mg/dL (<100); Triglycerides 128 mg/dL (35-150)
[2022-11-02 16:12] LABS: TSH w/ Reflex to FT4 1.08 uIU/mL (0.47-4.68)
[2022-11-03 17:40] LABS: Vitamin D 25 Hydroxy (D3) 113 ng/mL (30.0-100.0)
== END ==
PROVIDERS: PCP Internal Medicine; Referring Provider Internal Medicine; Visit Provider Internal Medicine
DX: E78.2 Mixed hyperlipidemia (principal); E55.9 Vitamin D deficiency, unspecified
CPT/HCPCS: 36415; 80061; 82306; 84443

== ENCOUNTER → 2023-01-19 12:06 | Outpatient (CLI) | payer MEDICARE, BC, SELFPAY ==
[2018-01-25 12:04] VITALS: BMI 29.6
[2023-01-19 13:34] LABS: Add Manual Diff / Slide Review NO; Basophils Absolute Auto 100 /uL (0-100); Basophils Percent Auto 1.1 % (0-2); Eosinophils Absolute Auto 100 /uL (0-450); Eosinophils Percent Auto 1.2 % (2-4); Hematocrit 36.8 % (36-46); Hemoglobin 12.6 g/dL (12.0-16.0); Lymphocytes Absolute Auto 1100 /uL (1100-4500); Lymphocytes Percent Auto 25.4 % (25-40); Mean Corpuscular HGB Conc 34.3 % (30-36); Mean Corpuscular Hemoglobin 31.8 PG (26-34); Mean Corpuscular Volume 92.7 fL (80-100); Monocytes Absolute Auto 700 /uL (0-900); Monocytes Percent Auto 15.9 % (3-14); Neutrophils Absolute Auto 2500 /uL (1500-7000); Neutrophils Percent Auto 56.4 % (50-75); Platelet Count 189 X10^3/uL (150-400); Red Blood Cell Count 3.97 X10^6/uL (4.0-5.2); Red Cell Distribution Width 14.6 % (11.6-14.8); White Blood Cell Count 4.4 X10^3/uL (4.5-11.0)
[2023-01-19 13:58] LABS: Alanine Aminotransferase 30 IU/L (<35); Albumin 4.6 g/dL (3.5-5.0); Albumin Globulin Ratio 1.6 (1.0-2.8); Alkaline Phosphatase 64 U/L (38-126); Aspartate Aminotransferase 29 IU/L (14-36); BUN Creatinine Ratio 25.4 (6-22); Bilirubin Total 0.3 mg/dL (0.2-1.3); Blood Urea Nitrogen 18 mg/dL (7-17); C-Reactive Protein Quant 1.1 mg/dL (<1.0); Calcium 10.2 mg/dL (8.4-10.2); Carbon Dioxide 25 mmol/L (22-32); Chloride 103 mmol/L (98-107); Estimated Glomerular Filt Rate > 60 mL/min (>60); Globulin 2.9 g/dL (1.7-4.1); Glucose 78 mg/dL (80-110); HEMOLYSIS < 15 (0-50); Potassium 4.2 mmol/L (3.4-5.1); Sodium 138 mmol/L (137-145); Total Protein 7.5 g/dL (6.3-8.2)
[2023-01-19 14:01] LABS: Erythrocyte Sedimentation Rate 19 MM/HR (0-20)
== END ==
PROVIDERS: PCP Family Medicine; Referring Provider Internal Medicine Rheumatology; Visit Provider Internal Medicine Rheumatology
DX: Z79.899 Other long term (current) drug therapy (principal); M45.9 Ankylosing spondylitis of unspecified sites in spine; M06.09 Rheumatoid arthritis without rheumatoid factor, multiple sites
CPT/HCPCS: 36415; 80053; 85025; 85651; 86140

== ENCOUNTER → 2023-03-07 14:58 | Outpatient (CLI) | payer MEDICARE, BC, SELFPAY ==
[2018-01-25 12:04] VITALS: BMI 29.6
--- NOTE | 2023-03-07 15:02 | DI.RAD.S_ITS ---
PROCEDURE: XR KNEE LT 3V INDICATIONS: pain x 2-3 mos, especially posterior lateral TECHNIQUE: 3 views of the knee were acquired. COMPARISON: None. FINDINGS: Bones: No fractures or dislocations. No suspicious bony lesions. Moderate tricompartmental arthritic change. Soft tissues: Moderate joint effusion. No suspicious soft tissue calcifications. IMPRESSION: Moderate tricompartmental arthritic change. Moderate effusion. No visualized acute fracture or dislocation. However, if clinical concern and/or pain persist, short interval imaging followup in 7-10 days is recommended, as occult injury cannot be definitively excluded. Dictated by: Jesica Albarran M.D. on 03/07/2023 at 16:31 Approved by: Jesica Albarran M.D. on 03/07/2023 at 16:31
== END ==
PROVIDERS: PCP Family Medicine; Referring Provider Physician Assistant; Visit Provider Physician Assistant
DX: M25.562 Pain in left knee (principal); M71.20 Synovial cyst of popliteal space [Baker], unspecified knee; M25.462 Effusion, left knee
CPT/HCPCS: 73562

== ENCOUNTER → 2023-03-14 14:12 | Outpatient (CLI) | payer MEDICARE, BC, SELFPAY ==
[2018-01-25 12:04] VITALS: BMI 29.6
--- NOTE | 2023-03-14 14:13 | DI.RAD.S_ITS ---
Bone Density Report Name: ROLANDO PARADA Age: 73 Sex: Female Ethnicity: White Date of : 1950 Indication: postmenopausal; screening for osteoporosis; history of glucocorticoids; rheumatoid arthritis; Referring Provider: CARI MIRANDA Study: Bone densitometry was performed. Exam Date: March 14, 2023 Accession number: [id number] Bone Density: Region BMD T-score Z-score Classification AP Spine(L1-L4) 0.873 -1.6 0.6 Osteopenia Femoral Neck (Left) 0.810 -0.3 1.5 Normal Total Hip (Left) 0.860 -0.7 0.9 Normal Femoral Neck (Right) 0.800 -0.4 1.4 Normal Total Hip (Right) 0.974 0.3 1.8 Normal Total Hip Mean 0.917 -0.2 1.4 Normal World Health Organization criteria for BMD impression classify patients as: Normal (T-score at or above -1.0), Osteopenia (T-score between -1.0 and -2.5), or Osteoporosis (T-score at or below -2.5). 10-year Fracture Risk(1): Major Osteoporotic Fracture 16% Hip Fracture 1.6% Reported Risk Factors: [place] (), Neck BMD=0.800, BMI=29.5, glucocorticoids, rheumatoid arthritis (1) FRAX(R) Version 3.08. Fracture probability calculated for an untreated patient. Fracture probability may be lower if the patient has received treatment. Previous Exams: -- Region Exam Age BMD T-score BMD Change BMD Change Date g/cm2 vs Baseline vs Previous -- AP Spine (L1-L4) 03/14/2023 73 0.873 -1.6 -0.104 (-10.6%)# -0.104 (-10.6%)# 04/18/2018 68 0.976 -0.6 Total Hip(Left) 03/14/2023 73 0.860 -0.7 -0.070 (-7.5%)# -0.070 (-7.5%)# 04/18/2018 68 0.929 -0.1 Total Hip(Right) 03/14/2023 73 0.974 0.3 -0.006 (-0.6%)# -0.006 (-0.6%)# 04/18/2018 68 0.980 0.3 -- *Denotes significance at 95% confidence level, LSC for AP Spine = 0.022 g/cm2, LSC for Total Hip = 0.027 g/cm2 # Denotes dissimilar scan types or analysis methods Impression: The patient has low bone mass, based on the Total Spine T-score. The patient has an estimated ten-year risk of hip fracture of 1.6% and an estimated ten-year risk of major fracture of 16%, based on the WHO FRAX algorithm. The patient has risk factors, including: history of glucocorticoid therapy. No significant bone loss was observed. Discussion: BONE DENSITY IS LOW AT ONE OR MORE SKELETAL SITES. This patient's lowest T-score is low at one or more skeletal sites. It meets the World Health Organization's (WHO) criteria for low bone mass (T-score between -1.0 and -2.5). The patient's 10-year risk of fracture as calculated by FRAX is less than the threshold where pharmacological therapy is recommended by the National Osteoporosis Foundation (NOF). However, all treatment decisions require clinical judgment and consideration of individual patient factors, including patient preferences, comorbidities, previous drug use, risk factors not captured in the FRAX model (e.g., frailty, falls, vitamin D deficiency, increased bone turnover, interval significant decline in bone density) and possible under or overestimation of fracture risk by FRAX. The patient should follow a healthful lifestyle (good nutrition with adequate calcium and vitamin D, and appropriate weight-bearing exercise). Follow-Up: Consider repeating this study in 2 to 3 years to reassess this patient's status, or sooner if there is some new clinical indication. Reported by: PHOENIX ISABEL M.D. on 03/14/2023 2:46:00 PM.
== END ==
PROVIDERS: PCP Family Medicine; Referring Provider Physician Assistant; Visit Provider Physician Assistant
DX: Z78.0 Asymptomatic menopausal state (principal); M85.88 Other specified disorders of bone density and structure, other site; M06.9 Rheumatoid arthritis, unspecified; Z92.241 Personal history of systemic steroid therapy; Z92.23 Personal history of estrogen therapy
CPT/HCPCS: 77080

== ENCOUNTER → 2023-04-19 14:06 | Outpatient (CLI) | payer MEDICARE, BC, SELFPAY ==
[2018-01-25 12:04] VITALS: BMI 29.6
[2023-04-19 15:22] LABS: Add Manual Diff / Slide Review NO; Basophils Absolute Auto 100 /uL (0-100); Basophils Percent Auto 1.2 % (0-2); Eosinophils Absolute Auto 100 /uL (0-450); Eosinophils Percent Auto 2.2 % (2-4); Hematocrit 36.1 % (36-46); Hemoglobin 12.5 g/dL (12.0-16.0); Lymphocytes Absolute Auto 1000 /uL (1100-4500); Lymphocytes Percent Auto 17.4 % (25-40); Mean Corpuscular HGB Conc 34.6 % (30-36); Mean Corpuscular Hemoglobin 32.9 PG (26-34); Mean Corpuscular Volume 95.1 fL (80-100); Monocytes Absolute Auto 700 /uL (0-900); Monocytes Percent Auto 13.1 % (3-14); Neutrophils Absolute Auto 3700 /uL (1500-7000); Neutrophils Percent Auto 66.1 % (50-75); Platelet Count 255 X10^3/uL (150-400); Red Cell Distribution Width 14.7 % (11.6-14.8); White Blood Cell Count 5.6 X10^3/uL (4.5-11.0)
[2023-04-19 15:58] LABS: Alanine Aminotransferase 29 IU/L (<35); Albumin 4.5 g/dL (3.5-5.0); Albumin Globulin Ratio 1.6 (1.0-2.8); Alkaline Phosphatase 57 U/L (38-126); Aspartate Aminotransferase 29 IU/L (14-36); BUN Creatinine Ratio 23.5 (6-22); Bilirubin Total 0.5 mg/dL (0.2-1.3); Blood Urea Nitrogen 16 mg/dL (7-17); C-Reactive Protein Quant 1.2 mg/dL (<1.0); Calcium 9.9 mg/dL (8.4-10.2); Carbon Dioxide 26 mmol/L (22-32); Chloride 100 mmol/L (98-107); Estimated Glomerular Filt Rate > 60 mL/min (>60); Globulin 2.9 g/dL (1.7-4.1); Glucose 82 mg/dL (80-110); HEMOLYSIS 16 (0-50); Potassium 4.3 mmol/L (3.4-5.1); Sodium 135 mmol/L (137-145); Total Protein 7.4 g/dL (6.3-8.2)
[2023-04-19 16:03] LABS: Erythrocyte Sedimentation Rate 25 MM/HR (0-20)
== END ==
PROVIDERS: PCP Family Medicine; Referring Provider Internal Medicine Rheumatology; Visit Provider Internal Medicine Rheumatology
DX: M45.9 Ankylosing spondylitis of unspecified sites in spine (principal); M06.09 Rheumatoid arthritis without rheumatoid factor, multiple sites
CPT/HCPCS: 36415; 80053; 85025; 85651; 86140

== ENCOUNTER → 2023-05-15 13:37 | Outpatient (CLI) | payer MEDICARE, BC, SELFPAY ==
[2018-01-25 12:04] VITALS: BMI 29.6
--- NOTE | 2023-05-15 13:38 | DI.MRI.S_ITS ---
PROCEDURE: MR KNEE LT WO CON INDICATIONS: left knee swelling, persistent pain TECHNIQUE: Noncontrast sagittal PD fast spin echo and T2 fast spin echo with fat saturation, sagittal 3-D FLASH with fat saturation; coronal T1 spin echo and PD fast spin echo with fat saturation, and axial PD fast spin echo with fat saturation through the knee. COMPARISON: [facility], CR, XR KNEE STANDING BILATERAL, 03/28/2023, 11:43. FINDINGS: Image quality: Excellent. Menisci: There is lateral meniscal extrusion. There is degenerative tear involving the anterior horn and the free edge of the body of the lateral meniscus. In addition, there is oblique tear of the posterior horn of the lateral meniscus extending to the inferior articular surface. There is horizontal tear involving the peripheral aspect of the body of the medial meniscus. The meniscal root ligaments appear intact. Cruciate ligaments: The anterior and posterior cruciate ligaments appear intact. Medial structures: The medial collateral ligament appears intact. The semimembranosus tendon insertions and meniscocapsular junction appear intact. Visualized portions of the pes anserinus tendons appear normal. No abnormal bursal fluid. Lateral structures: The lateral collateral ligament, long and short heads of the biceps femoris tendon appear intact. The popliteus tendon appears normal. Iliotibial band appears normal. Anterior structures: The quadriceps and patellar tendons appear intact. There is lateral tilt of patella. Patellar alignment is normal. No femoral trochlear dysplasia or ventral trochlear prominence. No edema in the infrapatellar fat pad. Bones and cartilage: No bone marrow contusions or fractures. There is tricompartmental cartilage thinning and fibrillation, most pronounced in the lateral femorotibial compartment. Full-thickness cartilage fissures are seen in the lateral femoral condyle with reactive subchondral edema. Moderate proximal tibiofibular joint degeneration is seen with joint space narrowing and periarticular osteophyte. Joint space: There is moderate knee joint effusion. There is a large Andrew's cyst. Normal appearing synovial plicae are incidentally noted. IMPRESSION: 1. Lateral meniscal extrusion and extensive lateral meniscal tear as described. 2. Horizontal tear of the peripheral aspect of the body of the medial meniscus. 3. 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 4. Moderate knee joint effusion. 5. A large Andrew's cyst. Dictated by: Adolfo Quintanilla M.D. on 05/16/2023 at 10:21 Approved by: Adolfo Quintanilla M.D. on 05/16/2023 at 10:30
== END ==
LOC: MRI 13:38
PROVIDERS: PCP Family Medicine; Referring Provider Family Medicine; Visit Provider Family Medicine
DX: S83.282A Other tear of lateral meniscus, current injury, left knee, initial encounter (principal); S83.242A Other tear of medial meniscus, current injury, left knee, initial encounter; M17.12 Unilateral primary osteoarthritis, left knee; M71.22 Synovial cyst of popliteal space [Baker], left knee; M25.462 Effusion, left knee; M25.562 Pain in left knee; M06.9 Rheumatoid arthritis, unspecified
CPT/HCPCS: 73721

== ENCOUNTER → 2023-07-19 14:37 | Outpatient (CLI) | payer MEDICARE, BC, SELFPAY ==
[2018-01-25 12:04] VITALS: BMI 29.6
[2023-07-19 15:25] LABS: Add Manual Diff / Slide Review NO; Basophils Absolute Auto 100 /uL (0-100); Basophils Percent Auto 1.2 % (0-2); Eosinophils Absolute Auto 100 /uL (0-450); Eosinophils Percent Auto 1.5 % (2-4); Hemoglobin 12.4 g/dL (12.0-16.0); Lymphocytes Absolute Auto 900 /uL (1100-4500); Mean Corpuscular HGB Conc 33.6 % (30-36); Mean Corpuscular Hemoglobin 32.1 PG (26-34); Mean Corpuscular Volume 95.7 fL (80-100); Monocytes Absolute Auto 600 /uL (0-900); Monocytes Percent Auto 11.3 % (3-14); Neutrophils Absolute Auto 3800 /uL (1500-7000); Platelet Count 253 X10^3/uL (150-400); Red Blood Cell Count 3.86 X10^6/uL (4.0-5.2); Red Cell Distribution Width 14.5 % (11.6-14.8); White Blood Cell Count 5.5 X10^3/uL (4.5-11.0)
[2023-07-19 15:53] LABS: Alanine Aminotransferase 26 IU/L (<35); Albumin 4.7 g/dL (3.5-5.0); Albumin Globulin Ratio 1.6 (1.0-2.8); Alkaline Phosphatase 62 U/L (38-126); Aspartate Aminotransferase 27 IU/L (14-36); BUN Creatinine Ratio 23.5 (6-22); Bilirubin Total 0.4 mg/dL (0.2-1.3); Blood Urea Nitrogen 16 mg/dL (7-17); C-Reactive Protein Quant 0.9 mg/dL (<1.0); Calcium 9.7 mg/dL (8.4-10.2); Carbon Dioxide 24 mmol/L (22-32); Chloride 106 mmol/L (98-107); Estimated Glomerular Filt Rate > 60 mL/min (>60); Glucose 91 mg/dL (80-110); HEMOLYSIS < 15 (0-50); Potassium 3.9 mmol/L (3.4-5.1); Sodium 139 mmol/L (137-145); Total Protein 7.7 g/dL (6.3-8.2)
[2023-07-19 16:10] LABS: Erythrocyte Sedimentation Rate 20 MM/HR (0-20)
== END ==
PROVIDERS: PCP Family Medicine; Referring Provider Internal Medicine Rheumatology; Visit Provider Internal Medicine Rheumatology
DX: M06.09 Rheumatoid arthritis without rheumatoid factor, multiple sites (principal); M45.9 Ankylosing spondylitis of unspecified sites in spine; Z79.899 Other long term (current) drug therapy
CPT/HCPCS: 36415; 80053; 85025; 85651; 86140

== ENCOUNTER → 2023-10-18 13:18 | Outpatient (CLI) | payer MEDICARE, BC, SELFPAY ==
[2018-01-25 12:04] VITALS: BMI 29.6
[2023-10-18 14:15] LABS: Add Manual Diff / Slide Review NO; Basophils Absolute Auto 100 /uL (0-100); Basophils Percent Auto 1.8 % (0-2); Eosinophils Absolute Auto 100 /uL (0-450); Eosinophils Percent Auto 2.6 % (2-4); Hematocrit 36.4 % (36-46); Hemoglobin 12.4 g/dL (12.0-16.0); Lymphocytes Absolute Auto 900 /uL (1100-4500); Lymphocytes Percent Auto 18.2 % (25-40); Mean Corpuscular Hemoglobin 32.1 PG (26-34); Mean Corpuscular Volume 94.4 fL (80-100); Monocytes Absolute Auto 700 /uL (0-900); Neutrophils Absolute Auto 3300 /uL (1500-7000); Neutrophils Percent Auto 64.4 % (50-75); Platelet Count 266 X10^3/uL (150-400); Red Blood Cell Count 3.86 X10^6/uL (4.0-5.2); Red Cell Distribution Width 14.9 % (11.6-14.8); White Blood Cell Count 5.2 X10^3/uL (4.5-11.0)
[2023-10-18 14:35] LABS: HEMOLYSIS < 15 (0-50); Potassium 4.7 mmol/L (3.4-5.1)
[2023-10-18 14:37] LABS: Alanine Aminotransferase 27 IU/L (<35); Albumin 4.4 g/dL (3.5-5.0); Albumin Globulin Ratio 1.7 (1.0-2.8); Alkaline Phosphatase 65 U/L (38-126); Aspartate Aminotransferase 26 IU/L (14-36); BUN Creatinine Ratio 29.5 (6-22); Bilirubin Total 0.4 mg/dL (0.2-1.3); Blood Urea Nitrogen 23 mg/dL (7-17); C-Reactive Protein Quant < 0.5 mg/dL (<1.0); Calcium 9.3 mg/dL (8.4-10.2); Carbon Dioxide 22 mmol/L (22-32); Chloride 106 mmol/L (98-107); Estimated Glomerular Filt Rate > 60 mL/min (>60); Globulin 2.6 g/dL (1.7-4.1); Glucose 88 mg/dL (80-110); Sodium 138 mmol/L (137-145)
[2023-10-18 14:55] LABS: Erythrocyte Sedimentation Rate 18 MM/HR (0-20)
== END ==
PROVIDERS: PCP Family Medicine; Referring Provider Internal Medicine Rheumatology; Visit Provider Internal Medicine Rheumatology
DX: M06.09 Rheumatoid arthritis without rheumatoid factor, multiple sites (principal)
CPT/HCPCS: 36415; 80053; 85025; 85651; 86140

== ENCOUNTER 2024-01-15 14:40 | Emergency (ER) | payer MEDICARE, BC, SELFPAY ==
[2018-01-25 12:04] VITALS: BMI 29.6
[2024-01-15] VITALS (13 sets, daily range): BP systolic 160–224; BP diastolic 72–93; PULSE 62–71; RESP 14–18; TEMP 36.9; O2SAT 96–100; BMI 30.3
--- NOTE | 2024-01-15 14:59 | DI.CT.S_ITS ---
PROCEDURE: CT ANGIO HEAD AND NECK INDICATIONS: LKW 1130, facial numbness with resolution TECHNIQUE: After the administration of intravenous contrast, 1 mm thick sections acquired from the aortic arch through the [place] of Don. 3-dimensional kjbckhl-ybaslsyav-oebnghtcts (MIP) and/or volume rendering reformats were acquired of the central intracranial vasculature and neck separately. For radiation dose reduction, the following was used: automated exposure control, adjustment of mA and/or kV according to patient size. COMPARISON: [facility], CT, CT HEAD/BRAIN WO CON, 01/15/2024, 15:16. FINDINGS: Image quality: Limited by bolus timing, with venous contamination. There is streak artifact seen through the level of the shoulders. BRAIN: CSF spaces: Ventricles are normal in size and shape. Basal cisterns are patent. No extra-axial fluid collections. Brain: No significant abnormality of the brain can be seen. Skull and face: Calvarium and facial bones appear intact, without suspicious lesions. Orbits appear normal. Sinuses: Focal opacification of the left maxillary sinus can be seen. HEAD CT ANGIOGRAPHY: Anterior circulation: Intracranial internal carotid arteries are normal in size and flow. The flow within the paired anterior cerebral arteries is normal and symmetric. The flow within the middle cerebral arteries is normal and symmetric. The anterior communicating artery is seen. No aneurysms are seen. Posterior circulation: Visualized portions of the vertebral arteries demonstrate normal caliber, and join to form a normal appearing basilar artery. Flow within the posterior cerebral arteries is normal and symmetric. No aneurysms are seen. NECK CT ANGIOGRAPHY: Carotid system: The great vessels demonstrate a conventional anatomy as they arise from the aortic arch. The origins of the common carotid arteries appear patent. The common carotid arteries demonstrate normal caliber and courses. The bifurcation regions are both widely patent. The internal carotid arteries demonstrate normal calibers and courses. Posterior circulation: The origins of the vertebral arteries both appear widely patent. The more superior extracranial portions of both vertebral arteries also demonstrate normal courses and calibers. They join to form a normal appearing basilar artery. Soft tissues: Visualized neck soft tissues demonstrate no suspicious abnormalities. Bones: No suspicious bony lesions. Visualized cervical spine appears normally aligned. IMPRESSION: No significant intracranial arterial abnormality is seen. No significant abnormality is seen within the arteries of the neck. No findings of dissection are seen. Any quantitative measurements of stenosis were performed using NASCET criteria. Dictated by: Omari Espino M.D. on 01/15/2024 at 14:32 Approved by: Omari Espino M.D. on 01/15/2024 at 14:33
--- NOTE | 2024-01-15 14:59 | DI.RAD.S_ITS ---
PROCEDURE: XR CHEST 1V INDICATIONS: Possible stroke TECHNIQUE: One view of the chest was acquired. COMPARISON: None. FINDINGS: Surgical changes and devices: None. Lungs and pleura: Lungs are clear. No pleural effusions or pneumothorax. Mediastinum: Mediastinal contours appear normal. Heart size is normal. Bones and chest wall: No suspicious bony lesions. Overlying soft tissues appear unremarkable. IMPRESSION: No acute pulmonary process. Dictated by: Jesica Albarran M.D. on 01/15/2024 at 15:32 Approved by: Jesica Albarran M.D. on 01/15/2024 at 15:33
--- NOTE | 2024-01-15 14:59 | DI.CT.S_ITS ---
PROCEDURE: CT HEAD/BRAIN WO CON INDICATIONS: Positive BE-FAST, Stroke symptoms TECHNIQUE: Noncontrast 4.5 mm thick angled axial sections acquired from the foramen magnum to the vertex, with coronal and sagittal reformats. For radiation dose reduction, the following was used: automated exposure control, adjustment of mA and/or kV according to patient size. COMPARISON: [facility], CT, CT ANGIO HEAD AND NECK, 01/15/2024, 15:16. FINDINGS: Image quality: Diagnostic. CSF spaces: Basal cisterns are patent. No extra-axial fluid collections. The ventricles are symmetric in size and shape. Brain: No intracranial bleeds or masses. There is cerebral volume loss for age, with resultant ventricular and sulcal prominence. There are periventricular and deep white matter chronic small vessel ischemic changes. There is intracranial internal carotid artery atherosclerosis. Skull and face: Calvarium and visualized facial bones appear intact, without suspicious lesions. Sinuses: There is complete opacification of the left maxillary sinus. There is dense calcification along the medial wall of the left maxillary sinus. The paranasal sinuses otherwise appear clear. No abnormal fluid is seen within the mastoid air cells. IMPRESSION: No acute intracranial hemorrhage is seen. No acute intracranial pathology. If there is strong clinical suspicion for an acute stroke, please consider a brain MRI for further evaluation, as it is more sensitive (assuming that there is no contraindication to MRI). Note made of opacification of the left maxillary sinus, with calcification seen medially. Please correlate with known patient history, including potential fungal sinusitis. Note: Case discussed by telephone with Dr. Kenney at 3:36 p.m. [place] time on January 15, 2024. Dictated by: Omari Espino M.D. on 01/15/2024 at 14:34 Approved by: Omari sEpino M.D. on 01/15/2024 at 14:36
[2024-01-15 15:25] LABS: Add Manual Diff / Slide Review NO; Basophils Absolute Auto 100 /uL (0-100); Basophils Percent Auto 1.2 % (0-2); Eosinophils Absolute Auto 100 /uL (0-450); Eosinophils Percent Auto 1.4 % (2-4); Hematocrit 37.9 % (36-46); Hemoglobin 12.9 g/dL (12.0-16.0); Lymphocytes Absolute Auto 1100 /uL (1100-4500); Lymphocytes Percent Auto 18.7 % (25-40); Mean Corpuscular Hemoglobin 32.2 PG (26-34); Mean Corpuscular Volume 94.7 fL (80-100); Monocytes Absolute Auto 600 /uL (0-900); Monocytes Percent Auto 9.4 % (3-14); Neutrophils Absolute Auto 4300 /uL (1500-7000); Neutrophils Percent Auto 69.3 % (50-75); Platelet Count 271 X10^3/uL (150-400); Red Cell Distribution Width 14.8 % (11.6-14.8); White Blood Cell Count 6.1 X10^3/uL (4.5-11.0)
[2024-01-15 15:41] LABS: PTT Partial Thromboplastin Tim 34 SECONDS (25.1-36.5)
[2024-01-15 15:44] LABS: Alanine Aminotransferase 28 IU/L (<35); Albumin 4.8 g/dL (3.5-5.0); Albumin Globulin Ratio 1.7 (1.0-2.8); Alkaline Phosphatase 68 U/L (38-126); Aspartate Aminotransferase 30 IU/L (14-36); BUN Creatinine Ratio 28.6 (6-22); Bilirubin Total 0.4 mg/dL (0.2-1.3); Blood Urea Nitrogen 20 mg/dL (7-17); Calcium 10.1 mg/dL (8.4-10.2); Carbon Dioxide 23 mmol/L (22-32); Chloride 104 mmol/L (98-107); Creatine Kinase 56 U/L (30-135); Estimated Glomerular Filt Rate > 60 mL/min (>60); Globulin 2.9 g/dL (1.7-4.1); Glucose 99 mg/dL (80-110); HEMOLYSIS 23 (0-50); Magnesium 1.7 mg/dL (1.6-2.3); Sodium 137 mmol/L (137-145); Total Protein 7.7 g/dL (6.3-8.2)
[2024-01-15 15:54] LABS: Troponin I < 0.012 ng/mL (0.01-0.034)
--- NOTE | 2024-01-15 19:06 | ED.NEUROSD ---
HPI - Neuro Symptoms/Deficit General Chief Complaint: Neuro Symptoms/Deficit Stated Complaint: May have had a TIA this morning Time Seen by Provider: 01/15/24 15:18 Source: patient and family Mode of arrival: Ambulatory History of Present Illness HPI Narrative: Patient is a 73-year-old female who is here for evaluation of a possible TIA. At approximately 1100 hours this morning she was at her normal state of health. She states she took some breakfast issues from the dining room into the kitchen. She was standing at the sink when she stated that she had a less than 5 minute episode of some tingling to the right side of her face. Some vision changes. Some ?dizziness?. No headache. No palpitations. No shortness of breath. No weakness in upper and lower extremities. He was never had anything like this in the past. States the symptoms completely resolved and has been asymptomatic since then. On Anticoagulants: Yes Related Data Home Medications Medication Instructions Recorded Confirmed hydroxychloroquine 200 mg tablet 200 mg PO BIDCC ##0 07/23/16 05/09/23 (Plaquenil) Stool Softener 300 mg PO DAILY 01/01/18 05/09/23 acetaminophen 500 mg tablet 500 mg PO DAILY 11/02/22 05/09/23 (Tylenol Extra Strength) ascorbic acid (vitamin C) 1,000 mg 1,000 mg PO DAILY 11/02/22 05/09/23 tablet calcium carb-vit D3-minerals 600 1 tab PO BID 11/02/22 05/09/23 mg calcium-400 unit tablet cholecalciferol (vitamin D3) 125 125 mcg PO DAILY 11/02/22 05/09/23 mcg (5,000 unit) capsule cyanocobalamin (vitamin B-12) 1,000 mcg PO DAILY 11/02/22 05/09/23 1,000 mcg capsule estradiol 10 mcg vaginal tablet 10 mcg vaginal QWEEK 11/02/22 05/09/23 ibuprofen 800 mg tablet 800 mg PO DAILY pain 11/02/22 05/09/23 leucovorin calcium 5 mg tablet 5 mg PO QWEEK 11/02/22 05/09/23 methotrexate sodium 2.5 mg tablet 20 mg PO QWEEK 11/02/22 05/09/23 omeprazole magnesium 20 mg 20 mg PO DAILY 11/02/22 05/09/23 tablet,delayed release (Prilosec OTC) vitamin K2 180 mcg capsule 180 mcg PO DAILY 11/02/22 05/09/23 Previous Rx's Medication Instructions Recorded amlodipine 10 mg tablet 10 mg PO DAILY #90 tabs 05/09/23 nitrofurantoin macrocrystal 50 mg 50 mg PO ONCE #90 caps 05/09/23 capsule fluticasone propionate 50 2 spray intranasal DAILY #48 grams 10/13/23 mcg/actuation nasal spray,suspension montelukast 10 mg tablet 10 mg PO QDAY #90 tabs 11/16/23 (Singulair) desloratadine 5 mg tablet 5 mg PO QDAY #90 tabs 01/05/24 Allergies Allergy/AdvReac Type Severity Reaction Status Date / Time latex [LATEX] Allergy Unknown Verified 05/09/23 15:28 Sulfa (Sulfonamide Allergy Unknown Verified 05/09/23 15:28 Antibiotics) [SULFA (SULFONAMIDE ANTIBIOTICS)] Review of Systems Review of Systems ROS Unobtainable: All systems reviewed & are unremarkable except as noted in HPI and below Hematologic/Lymphatic On Anticoagulants: Yes Patient History Medical History Left knee pain Andrew's cyst, unruptured Obesity (BMI 30.0-34.9) Recurrent UTI Osteopenia Menopausal syndrome Atrophic vulvovaginitis Pelvic relaxation History of sinusitis Chronic UTI Postmenopausal Ankylosing spondylitis Rheumatoid arthritis Surgical History History of appendectomy (1982) History of cholecystectomy (1982) Family History Mother No problems noted. Family/Other Arthritis Family/Other Psoriatic arthritis Social History details: , two sons, retired consolidation accountant household members: spouse Smoking Status: Never smoker alcohol intake: current Smoking Status: Never smoker alcohol intake frequency: 0-2 drinks per day Substance Use Type: does not use Exam Initial Vital Signs Initial Vital Signs: Vital Signs Temperature 98.4 F 01/15/24 14:46 Pulse Rate 71 01/15/24 14:46 Respiratory Rate 14 01/15/24 14:46 Blood Pressure 224/93 H 01/15/24 14:46 Pulse Oximetry 99 01/15/24 14:46 Oxygen Delivery Method Room Air 01/15/24 14:46 Const General: cooperative, comfortable and No ill appearing HENMT Head: normal to inspection and normocephalic Resp Effort & Inspection: normal respiratory effort Auscultation: clear to auscultation bilaterally Cardio Rate: regular rate Rhythm: regular rhythm GI Inspection: normal to inspection Skin General: no rashes or lesions noted Neuro General: patient alert, patient awake, patient oriented x3 and moves all extremities Cranial Nerves: CN's II-XI intact bilaterally Cognition: normal cognition Speech: speech normal Extrem General: normal to inspection and capillary refill normal Scores ABCD2 Age >= 60 years: yes Initial BP. Either SBP >= 140 or DBP >= 90.: yes Clinical features of the TIA: other symptoms Duration of symptoms: < 10 minutes History of diabetes: no ABCD2 Score: 2 GCS [place] coma scale eye opening: Spontaneous [place] coma scale verbal response: Orientated [place] coma scale motor response: Obey commands [place] coma scale total score: 15 Course Orders Ordered: ED Orders 01/15/24 14:59 CT angio head and neck Stat CT head/brain wo con Stat XR chest 1V Stat EKG-12 Lead Stat 01/15/24 15:12 Complete Blood Count AUTO DIFF Stat Comprehensive Metabolic Panel Stat Magnesium Stat PTT Partial Thromboplastin Estuardo Stat Prothrombin Time INR Stat Troponin & CK Cardiac Panel Stat Discontinued Medications Ondansetron HCl (Ondansetron 4 Mg/2 Ml Inj) 4 mg IV NOW PRN PRN Reason: Nausea And Vomiting Ondansetron HCl (Ondansetron 4 Mg Odt) 4 mg SL NOW PRN PRN Reason: Nausea And Vomiting Vital Signs Vital signs: Vital Signs - 8 hr 01/15/24 14:46 01/15/24 16:13 01/15/24 16:30 Temperature 98.4 F Pulse Rate 71 62 65 Respiratory Rate 14 Blood Pressure 224/93 H Pulse Oximetry 99 99 98 Oxygen Delivery Method Room Air 01/15/24 16:36 01/15/24 17:00 01/15/24 17:00 Temperature Pulse Rate 68 69 Respiratory Rate 16 Blood Pressure 204/86 H 214/89 H Pulse Oximetry 99 99 Oxygen Delivery Method Room Air 01/15/24 17:30 01/15/24 17:31 01/15/24 17:32 Temperature Pulse Rate 63 63 Respiratory Rate 18 Blood Pressure 199/82 H Pulse Oximetry 100 99 Oxygen Delivery Method 01/15/24 17:32 01/15/24 18:00 01/15/24 18:01 Temperature Pulse Rate 64 65 Respiratory Rate Blood Pressure 178/75 H Pulse Oximetry 99 100 Oxygen Delivery Method 01/15/24 18:01 01/15/24 18:30 01/15/24 18:31 Temperature Pulse Rate 65 64 Respiratory Rate 16 18 Blood Pressure 160/72 H Pulse Oximetry 99 96 Oxygen Delivery Method 01/15/24 18:31 01/15/24 19:00 01/15/24 19:00 Temperature Pulse Rate 66 67 Respiratory Rate 18 Blood Pressure 178/81 H Pulse Oximetry 98 97 Oxygen Delivery Method MDM - Neuro Symptoms/Deficit Lab Data Attestation: I reviewed the patient's lab results. 01/15/24 15:12 01/15/24 15:12 Labs: Lab Results 01/15/24 Range/Units 15:12 WBC 6.1 (4.5-11.0) X10^3/uL RBC 4.00 (4.0-5.2) X10^6/uL Hgb 12.9 (12.0-16.0) g/dL Hct 37.9 (36-46) % MCV 94.7 (80-100) fL MCH 32.2 (26-34) PG MCHC 34.0 (30-36) % RDW 14.8 (11.6-14.8) % Plt Count 271 (150-400) X10^3/uL Neut % (Auto) 69.3 (50-75) % Lymph % (Auto) 18.7 L (25-40) % Frontier % (Auto) 9.4 (3-14) % Eos % (Auto) 1.4 L (2-4) % Baso % (Auto) 1.2 (0-2) % Neut # (Auto) 4300 (1614-6488) /uL Lymph # (Auto) 1100 (0886-7814) /uL Frontier # (Auto) 600 (0-900) /uL Eos # (Auto) 100 (0-450) /uL Baso # (Auto) 100 (0-100) /uL PT 11.0 (9.4-12.5) SECONDS INR 1.0 (0.9-1.3) APTT 34 (25.1-36.5) SECONDS Sodium 137 (137-145) mmol/L Potassium 4.0 (3.4-5.1) mmol/L Chloride 104 (98-107) mmol/L Carbon Dioxide 23 (22-32) mmol/L BUN 20 H (7-17) mg/dL Creatinine 0.70 (0.52-1.04) mg/dL Estimated GFR > 60 (>60) mL/min BUN/Creatinine Ratio 28.6 H (6-22) Glucose 99 (80-110) mg/dL Calcium 10.1 (8.4-10.2) mg/dL Magnesium 1.7 (1.6-2.3) mg/dL Total Bilirubin 0.4 (0.2-1.3) mg/dL AST 30 (14-36) IU/L ALT 28 (<35) IU/L Alkaline Phosphatase 68 (38-126) U/L Total Creatine Kinase 56 (30-135) U/L Troponin I < 0.012 (0.01-0.034) ng/mL Total Protein 7.7 (6.3-8.2) g/dL Albumin 4.8 (3.5-5.0) g/dL Globulin 2.9 (1.7-4.1) g/dL Albumin/Globulin Ratio 1.7 (1.0-2.8) Imaging Data Chest x-ray: Radiologist's Impression: PROCEDURE: XR CHEST 1V INDICATIONS: Possible stroke TECHNIQUE: One view of the chest was acquired. COMPARISON: None. FINDINGS: Surgical changes and devices: None. Lungs and pleura: Lungs are clear. No pleural effusions or pneumothorax. Mediastinum: Mediastinal contours appear normal. Heart size is normal. Bones and chest wall: No suspicious bony lesions. Overlying soft tissues appear unremarkable. IMPRESSION: No acute pulmonary process. CT scan - head: Radiologist's Impression: PROCEDURE: CT HEAD/BRAIN WO CON INDICATIONS: Positive BE-FAST, Stroke symptoms TECHNIQUE: Noncontrast 4.5 mm thick angled axial sections acquired from the foramen magnum to the vertex, with coronal and sagittal reformats. For radiation dose reduction, the following was used: automated exposure control, adjustment of mA and/or kV according to patient size. COMPARISON: [facility], CT, CT ANGIO HEAD AND NECK, 01/15/2024, 15:16. FINDINGS: Image quality: Diagnostic. CSF spaces: Basal cisterns are patent. No extra-axial fluid collections. The ventricles are symmetric in size and shape. Brain: No intracranial bleeds or masses. There is cerebral volume loss for age, with resultant ventricular and sulcal prominence. There are periventricular and deep white matter chronic small vessel ischemic changes. There is intracranial internal carotid artery atherosclerosis. Skull and face: Calvarium and visualized facial bones appear intact, without suspicious lesions. Sinuses: There is complete opacification of the left maxillary sinus. There is dense calcification along the medial wall of the left maxillary sinus. The paranasal sinuses otherwise appear clear. No abnormal fluid is seen within the mastoid air cells. IMPRESSION: No acute intracranial hemorrhage is seen. No acute intracranial pathology. If there is strong clinical suspicion for an acute stroke, please consider a brain MRI for further evaluation, as it is more sensitive (assuming that there is no contraindication to MRI). Note made of opacification of the left maxillary sinus, with calcification seen medially. Please correlate with known patient history, including potential fungal sinusitis. Note: Case discussed by telephone with Dr. Kenney at 3:36 p.m. [place] time on January 15, 2024. CTA - brain/neck: Radiologist's Impression: PROCEDURE: CT ANGIO HEAD AND NECK INDICATIONS: LKW 1130, facial numbness with resolution TECHNIQUE: After the administration of intravenous contrast, 1 mm thick sections acquired from the aortic arch through the [place] of Don. 3-dimensional hfaxysw-mqwjjexby-lzrstamosv (MIP) and/or volume rendering reformats were acquired of the central intracranial vasculature and neck separately. For radiation dose reduction, the following was used: automated exposure control, adjustment of mA and/or kV according to patient size. COMPARISON: [facility], CT, CT HEAD/BRAIN WO CON, 01/15/2024, 15:16. FINDINGS: Image quality: Limited by bolus timing, with venous contamination. There is streak artifact seen through the level of the shoulders. BRAIN: CSF spaces: Ventricles are normal in size and shape. Basal cisterns are patent. No extra-axial fluid collections. Brain: No significant abnormality of the brain can be seen. Skull and face: Calvarium and facial bones appear intact, without suspicious lesions. Orbits appear normal. Sinuses: Focal opacification of the left maxillary sinus can be seen. HEAD CT ANGIOGRAPHY: Anterior circulation: Intracranial internal carotid arteries are normal in size and flow. The flow within the paired anterior cerebral arteries is normal and symmetric. The flow within the middle cerebral arteries is normal and symmetric. The anterior communicating artery is seen. No aneurysms are seen. Posterior circulation: Visualized portions of the vertebral arteries demonstrate normal caliber, and join to form a normal appearing basilar artery. Flow within the posterior cerebral arteries is normal and symmetric. No aneurysms are seen. NECK CT ANGIOGRAPHY: Carotid system: The great vessels demonstrate a conventional anatomy as they arise from the aortic arch. The origins of the common carotid arteries appear patent. The common carotid arteries demonstrate normal caliber and courses. The bifurcation regions are both widely patent. The internal carotid arteries demonstrate normal calibers and courses. Posterior circulation: The origins of the vertebral arteries both appear widely patent. The more superior extracranial portions of both vertebral arteries also demonstrate normal courses and calibers. They join to form a normal appearing basilar artery. Soft tissues: Visualized neck soft tissues demonstrate no suspicious abnormalities. Bones: No suspicious bony lesions. Visualized cervical spine appears normally aligned. IMPRESSION: No significant intracranial arterial abnormality is seen. No significant abnormality is seen within the arteries of the neck. No findings of dissection are seen. ECG Data Attestation: I personally reviewed and interpreted this ECG as follows: MDM Narrative Medical decision making narrative: Patient is asymptomatic. Workup here in the emergency department is unremarkable. Has a low risk ABCD2 score. I am not even 100% convinced that this was a TIA. Has been somewhat hypertensive here in the ER without history of hypertension however patient does not regularly take her blood pressure at home. We discussed admission to the hospital for further evaluation versus discharge home and the patient opted to be discharged home. Will have her contact her primary doctor for follow-up. Discharge Plan Departure Patient Disposition: Home Clinical Impression: Transient cerebral ischemia, Hypertension Instructions: DI for Transient Ischemic Attack Activity Restrictions/Additional Instructions: Recommend that you continue to take all of your medications as directed. I also recommend that you take your blood pressure at home once a day like we discussed and record the results. Tomorrow contact your primary care doctor's office to discuss your visit here in the emergency department today and the indications for further evaluation. Prescriptions: No Action hydroxychloroquine [Plaquenil] 200 MG tablet 200 mg PO BIDCC Qty: 0 fluticasone propionate 50 mcg/actuation spray,suspension 2 spray intranasal DAILY Qty: 48 1RF montelukast [Singulair] 10 mg tablet 10 mg PO QDAY Qty: 90 2RF desloratadine 5 mg tablet 5 mg PO QDAY Qty: 90 1RF leucovorin calcium 5 mg tablet 5 mg PO QWEEK estradiol 10 mcg tablet 10 mcg vaginal QWEEK omeprazole magnesium [Prilosec OTC] 20 mg tablet,delayed release (DR/EC) 20 mg PO DAILY cholecalciferol (vitamin D3) 125 mcg (5,000 unit) capsule 125 mcg PO DAILY ascorbic acid (vitamin C) 1,000 mg tablet 1,000 mg PO DAILY vitamin K2 180 mcg capsule 180 mcg PO DAILY cyanocobalamin (vitamin B-12) 1,000 mcg capsule 1,000 mcg PO DAILY calcium carbonate-vit D3-min 600 mg calcium- 400 unit tablet 1 tab PO BID ibuprofen 800 mg tablet 800 mg PO DAILY acetaminophen [Tylenol Extra Strength] 500 mg tablet 500 mg PO DAILY nitrofurantoin macrocrystal 50 mg capsule 50 mg PO ONCE Qty: 90 3RF Rx Instructions: must administer with a meal/food amlodipine 10 mg tablet 10 mg PO DAILY Qty: 90 3RF methotrexate sodium 2.5 mg tablet 20 mg PO QWEEK Stool Softener capsule 300 mg PO DAILY Referrals: Riccardo Romeo MD [Primary Care Provider] - Stand Alone Forms: Patient Portal/API
== END 2024-01-15 19:18 | disposition home or self-care (01) ==
PROVIDERS: Emergency Medicine; Emergency Provider Emergency Medicine; PCP Family Medicine
DX: G45.9 Transient cerebral ischemic attack, unspecified (principal); I10 Essential (primary) hypertension
CPT/HCPCS: 36415; 70450; 70496; 70498; 71045; 80053; 82550; 83735; 84484; 85025; 85610; 85730; 99285; Q9967

== ENCOUNTER → 2024-01-17 15:10 | Outpatient (CLI) | payer MEDICARE, BC, SELFPAY ==
[2018-01-25 12:04] VITALS: BMI 29.6
--- NOTE | 2024-01-17 15:12 | DI.MRI.S_ITS ---
PROCEDURE: MR STROKE Pre- and post-contrast brain MRI, non-contrast brain MR angiogram, pre- and postcontrast neck MR angiogram INDICATIONS: TIA TECHNIQUE: Brain: Noncontrast axial T1 spin echo, axial T2 fast spin echo, sagittal and axial FLAIR, coronal T2 fast spin echo, axial gradient echo, axial diffusion and ADC through the brain. After the administration of contrast, axial 3D VIBE of the cranial vasculature and brain. Brain MRA: Non-contrast 3-D time of flight MR angiogram, with multiple lvnsaug-jmxxicryw-diysqgiwlq (MIP) reformats performed. Neck MRA: Axial and sagittal TruFISP through the neck. Coronal dynamic MR angiogram during administration of contrast in the arterial and venous phases, with 3-dimenstional wffkloi-pmhbnddik-gasxldgnky (MIP) reformats constructed from subtraction images. COMPARISON: [facility], CT, CT ANGIO HEAD AND NECK, 01/15/2024, 15:16. [facility], CT, CT HEAD/BRAIN WO CON, 01/15/2024, 15:16. FINDINGS: Image quality: Diagnostic, with note made of motion artifact. BRAIN: CSF spaces: Ventricles are normal in size and shape. Basal cisterns are patent. No extra-axial fluid collections. Brain: No intracranial bleeds or mass effects. Hinkle-white matter interface is normal. Diffusion weighted images show no acute infarct. Brainstem appears normal. Normal intravascular flow voids are present. No abnormal intracranial enhancement. Note is made of age-appropriate brain parenchymal volume loss and chronic small vessel ischemic changes. Skull and face: Calvarial marrow signal is normal. Orbits appear normal. Incidental note is made of hyperostosis frontalis. This is not considered to be pathologic in a woman of this age. Sinuses: Dense opacification of the left maxillary sinus is again seen. Sinuses and mastoids are otherwise relatively clear. BRAIN MR ANGIOGRAM: Anterior circulation: Intracranial internal carotid arteries are normal in size and enhancement. The flow within the paired anterior cerebral arteries is normal and symmetric. The flow within the middle cerebral arteries is normal and symmetric. The anterior communicating artery is seen. No stenoses, occlusions, or aneurysms. Posterior circulation: The visualized portions of the vertebral arteries demonstrate normal caliber, and join to form a normal appearing basilar artery. The flow within the posterior cerebral arteries is normal and symmetric. No stenoses, occlusions, or aneurysms. NECK MR ANGIOGRAM: Carotids: Great vessels demonstrate a conventional anatomy as they arise from the aortic arch. The origins of the common carotid arteries appear patent. The calibers and courses of both common carotid arteries are normal. The bifurcation regions appear normal bilaterally. The internal carotid arteries demonstrate normal course and caliber. Posterior circulation: The origins of the vertebral arteries appear patent. More superior portions of both vertebral arteries demonstrate normal course and caliber, and join to form a normal appearing basilar artery. Miscellaneous: Subclavian arteries appear patent. Pre-contrast images through the neck show no soft tissue abnormalities. IMPRESSION: BRAIN MRI: No findings of acute or subacute infarction can be seen. No masses or abnormal enhancement can be seen. BRAIN MR ANGIOGRAM: No significant intracranial arterial abnormality is seen. NECK MR ANGIOGRAM: Within the arteries of the neck, no hemodynamically significant stenosis can be seen. Additional findings: Focal left maxillary sinus disease Dictated by: Omari Espino M.D. on 01/17/2024 at 16:34 Approved by: Omari Espino M.D. on 01/17/2024 at 16:36
== END ==
PROVIDERS: PCP Family Medicine; Referring Provider Family Medicine; Visit Provider Family Medicine
DX: G45.9 Transient cerebral ischemic attack, unspecified (principal)
CPT/HCPCS: 70544; 70549; 70553; A9579

== ENCOUNTER → 2024-04-17 09:48 | Outpatient (CLI) | payer MEDICARE, BC, SELFPAY ==
[2018-01-25 12:04] VITALS: BMI 29.6
[2024-04-17 10:34] LABS: Add Manual Diff / Slide Review NO; Basophils Absolute Auto 100 /uL (0-100); Basophils Percent Auto 1.3 % (0-2); Eosinophils Absolute Auto 100 /uL (0-450); Eosinophils Percent Auto 2.6 % (2-4); Hematocrit 37.9 % (36-46); Hemoglobin 12.6 g/dL (12.0-16.0); Lymphocytes Absolute Auto 900 /uL (1100-4500); Mean Corpuscular HGB Conc 33.4 % (30-36); Mean Corpuscular Hemoglobin 31.8 PG (26-34); Mean Corpuscular Volume 95.4 fL (80-100); Monocytes Absolute Auto 500 /uL (0-900); Monocytes Percent Auto 12.1 % (3-14); Neutrophils Absolute Auto 2500 /uL (1500-7000); Platelet Count 267 X10^3/uL (150-400); Red Blood Cell Count 3.97 X10^6/uL (4.0-5.2); Red Cell Distribution Width 14.7 % (11.6-14.8)
[2024-04-17 10:53] LABS: Alanine Aminotransferase 30 IU/L (<35); Albumin 4.5 g/dL (3.5-5.0); Albumin Globulin Ratio 1.8 (1.0-2.8); Alkaline Phosphatase 63 U/L (38-126); Aspartate Aminotransferase 31 IU/L (14-36); BUN Creatinine Ratio 23.1 (6-22); Bilirubin Total 0.5 mg/dL (0.2-1.3); Blood Urea Nitrogen 18 mg/dL (7-17); Carbon Dioxide 23 mmol/L (22-32); Chloride 108 mmol/L (98-107); Cholesterol 158 mg/dL (140-199); Creatinine Urine Random 72.61 mg/dL; Estimated Glomerular Filt Rate > 60 mL/min (>60); Globulin 2.5 g/dL (1.7-4.1); Glucose 96 mg/dL (80-110); HDL Cholesterol 68 mg/dL (40-60); HEMOLYSIS < 15 (0-50); LDL Cholesterol Calculated 71 mg/dL (<100); Potassium 4.1 mmol/L (3.4-5.1); Sodium 139 mmol/L (137-145); Triglycerides 94 mg/dL (35-150)
[2024-04-17 10:54] LABS: C-Reactive Protein Quant 0.5 mg/dL (<1.0)
[2024-04-17 10:58] LABS: Microalbumin Urine Random < 0.6 mg/dL (0-1.6)
[2024-04-17 11:09] LABS: Erythrocyte Sedimentation Rate 23 MM/HR (0-20)
[2024-04-17 11:23] LABS: TSH w/ Reflex to FT4 2.22 uIU/mL (0.47-4.68)
[2024-04-18 04:08] LABS: Apolipoprotein B 61 mg/dL (<90)
== END ==
PROVIDERS: PCP Family Medicine; Referring Provider Internal Medicine Rheumatology; Visit Provider Family Medicine
DX: M06.09 Rheumatoid arthritis without rheumatoid factor, multiple sites (principal); Z79.899 Other long term (current) drug therapy; D84.821 Immunodeficiency due to drugs; M45.9 Ankylosing spondylitis of unspecified sites in spine; M06.9 Rheumatoid arthritis, unspecified; M25.462 Effusion, left knee; M17.12 Unilateral primary osteoarthritis, left knee; M25.562 Pain in left knee
CPT/HCPCS: 36415; 80053; 80061; 82043; 82172; 82570; 84443; 85025; 85651; 86140

== ENCOUNTER → 2024-07-17 13:06 | Outpatient (CLI) | payer MEDICARE, BC, SELFPAY ==
[2018-01-25 12:04] VITALS: BMI 29.6
[2024-07-17 14:37] LABS: Add Manual Diff / Slide Review NO; Basophils Absolute Auto 100 /uL (0-100); Basophils Percent Auto 1.1 % (0-2); Eosinophils Absolute Auto 100 /uL (0-450); Eosinophils Percent Auto 2.4 % (2-4); Hematocrit 37.1 % (36-46); Hemoglobin 12.5 g/dL (12.0-16.0); Lymphocytes Absolute Auto 800 /uL (1100-4500); Lymphocytes Percent Auto 16.8 % (25-40); Mean Corpuscular HGB Conc 33.7 % (30-36); Mean Corpuscular Hemoglobin 32.2 PG (26-34); Mean Corpuscular Volume 95.5 fL (80-100); Monocytes Absolute Auto 600 /uL (0-900); Neutrophils Absolute Auto 3300 /uL (1500-7000); Neutrophils Percent Auto 67.7 % (50-75); Platelet Count 249 X10^3/uL (150-400); Red Blood Cell Count 3.89 X10^6/uL (4.0-5.2); Red Cell Distribution Width 14.6 % (11.6-14.8); White Blood Cell Count 4.9 X10^3/uL (4.5-11.0)
[2024-07-17 15:02] LABS: Alanine Aminotransferase 34 IU/L (<35); Albumin 4.5 g/dL (3.5-5.0); Albumin Globulin Ratio 1.7 (1.0-2.8); Alkaline Phosphatase 63 U/L (38-126); Aspartate Aminotransferase 31 IU/L (14-36); BUN Creatinine Ratio 28.2 (6-22); Bilirubin Total 0.5 mg/dL (0.2-1.3); Blood Urea Nitrogen 22 mg/dL (7-17); C-Reactive Protein Quant < 0.5 mg/dL (<1.0); Calcium 9.8 mg/dL (8.4-10.2); Carbon Dioxide 21 mmol/L (22-32); Chloride 105 mmol/L (98-107); Estimated Glomerular Filt Rate > 60 mL/min (>60); Globulin 2.6 g/dL (1.7-4.1); Glucose 97 mg/dL (70-99); HEMOLYSIS < 15 (0-50); Potassium 4.5 mmol/L (3.4-5.1); Sodium 138 mmol/L (137-145); Total Protein 7.1 g/dL (6.3-8.2)
[2024-07-17 15:05] LABS: Erythrocyte Sedimentation Rate 19 MM/HR (0-20)
== END ==
PROVIDERS: PCP Family Medicine; Referring Provider Internal Medicine Rheumatology; Visit Provider Internal Medicine Rheumatology
DX: M06.09 Rheumatoid arthritis without rheumatoid factor, multiple sites (principal); D84.821 Immunodeficiency due to drugs; Z79.899 Other long term (current) drug therapy
CPT/HCPCS: 36415; 80053; 85025; 85651; 86140

== ENCOUNTER → 2024-10-23 16:57 | Outpatient (CLI) | payer MEDICARE, BC, SELFPAY ==
[2018-01-25 12:04] VITALS: BMI 29.6
[2024-10-23 18:23] LABS: Add Manual Diff / Slide Review NO; Hematocrit 37.4 % (36-46); Hemoglobin 12.9 g/dL (12.0-16.0); Lymphocytes Absolute Auto 1300 /uL (1100-4500); Mean Corpuscular HGB Conc 34.4 % (30-36); Mean Corpuscular Hemoglobin 32.6 PG (26-34); Mean Corpuscular Volume 94.8 fL (80-100); Platelet Count 269 X10^3/uL (150-400)
[2024-10-23 18:27] LABS: Alanine Aminotransferase 29 IU/L (<35); Albumin 4.6 g/dL (3.5-5.0); Albumin Globulin Ratio 1.6 (1.0-2.8); Alkaline Phosphatase 78 U/L (38-126); Blood Urea Nitrogen 17 mg/dL (7-17); Calcium 10.1 mg/dL (8.4-10.2); Carbon Dioxide 22 mmol/L (22-32); Chloride 105 mmol/L (98-107); Estimated Glomerular Filt Rate > 60 mL/min (>60); Globulin 2.9 g/dL (1.7-4.1); Glucose 89 mg/dL (70-99); HEMOLYSIS < 15 (0-50); Potassium 4.0 mmol/L (3.4-5.1); Sodium 138 mmol/L (137-145); Total Protein 7.5 g/dL (6.3-8.2)
== END ==
PROVIDERS: PCP Family Medicine; Referring Provider Internal Medicine Rheumatology; Visit Provider Internal Medicine Rheumatology
DX: D84.821 Immunodeficiency due to drugs (principal); M19.90 Unspecified osteoarthritis, unspecified site; M45.9 Ankylosing spondylitis of unspecified sites in spine; Z79.899 Other long term (current) drug therapy
CPT/HCPCS: 36415; 80053; 85025; 85651; 86140

== ENCOUNTER → 2025-01-22 12:59 | Outpatient (CLI) | payer MEDICARE, BC, SELFPAY ==
[2018-01-25 12:04] VITALS: BMI 29.6
[2025-01-22 13:28] LABS: Add Manual Diff / Slide Review NO; Hematocrit 37.5 % (36-46); Hemoglobin 12.7 g/dL (12.0-16.0); Lymphocytes Absolute Auto 1200 /uL (1100-4500); Mean Corpuscular HGB Conc 33.8 % (30-36); Mean Corpuscular Hemoglobin 31.5 PG (26-34); Mean Corpuscular Volume 93.2 fL (80-100); Platelet Count 252 X10^3/uL (150-400)
[2025-01-22 14:10] LABS: Alanine Aminotransferase 23 IU/L (<35); Albumin 4.7 g/dL (3.5-5.0); Albumin Globulin Ratio 1.8 (1.0-2.8); Alkaline Phosphatase 68 U/L (38-126); Blood Urea Nitrogen 18 mg/dL (7-17); Calcium 9.8 mg/dL (8.4-10.2); Carbon Dioxide 24 mmol/L (22-32); Chloride 102 mmol/L (98-107); Estimated Glomerular Filt Rate > 60 mL/min (>60); Globulin 2.6 g/dL (1.7-4.1); Glucose 88 mg/dL (70-99); HEMOLYSIS < 15 (0-50); Potassium 4.6 mmol/L (3.4-5.1); Sodium 137 mmol/L (137-145); Total Protein 7.3 g/dL (6.3-8.2)
== END ==
PROVIDERS: PCP Family Medicine; Referring Provider Internal Medicine Rheumatology; Visit Provider Internal Medicine Rheumatology
DX: D84.821 Immunodeficiency due to drugs (principal); M19.90 Unspecified osteoarthritis, unspecified site; M45.9 Ankylosing spondylitis of unspecified sites in spine; Z79.899 Other long term (current) drug therapy
CPT/HCPCS: 36415; 80053; 85025; 85651; 86140